=== PATIENT | female | born 1990 | race Caucasian/White ===

== ENCOUNTER → 2017-06-23 | Outpatient (CLI) | payer OTHER ==
[~2017-06-23] MED LIST: APRITAB PO; BENT20TA PO; BUTA1CAP PO
[2017-06-23 14:00] LABS: FREE T4 1.03 NG/DL (0.76-1.46)
== END ==
LOC: M LAB 12:12
PROVIDERS: ATTEND Internal Medicine Gastroenterology
DX: K58.0 Irritable bowel syndrome with diarrhea (principal)

== ENCOUNTER 2017-07-16 13:04 | Day surgery (SDC) | payer OTHER ==
[~2017-07-16] VITALS: Ht 167.6 cm; Wt 67.1 kg
[2017-07-16] MEDS ORDERED: NS 1,000 ML IV ONE (14:15)
[2017-07-16] MEDS ORDERED: LIDOCAINE 2% INJ 100 MG/5 ML SDV (FOR ANES.) As Ordered ONE (14:23)
[2017-07-16] MEDS ORDERED: PROPOFOL 200 MG/20 ML VIAL As Ordered ONE (14:23)
--- NOTE | 2017-07-16 15:17 | ROOR ---
Patient Name: My Melissa Procedure Date: 07/16/2017 3:08 PM Date of : 1990 Age: 27 Room: [facility] Gender: Female Note Status: Finalized Procedure: Upper GI endoscopy Indications: Epigastric abdominal pain, Lower abdominal pain Providers: Nura MILLER MD Referring MD: Deandre GRAHAM NP Requesting Provider: Medicines: Monitored Anesthesia Care Complications: No immediate complications. Procedure: Pre-Anesthesia Assessment: - The heart rate, respiratory rate, oxygen saturations, blood pressure, adequacy of pulmonary ventilation, and response to care were monitored throughout the procedure. The Endoscope was introduced through the mouth, and advanced to the second part of duodenum. The upper GI endoscopy was accomplished without difficulty. The patient tolerated the procedure well. Findings: The esophagus was normal. The stomach was normal. The examined duodenum was normal. Impression: - Normal esophagus. - Normal stomach. - Normal examined duodenum. - No specimens collected. Recommendation: - Observe patient's clinical course. - Continue present medications. Nura Miller MD Nura MILLER MD 07/16/2017 3:16:58 PM This report has been signed electronically. Number of Addenda: 0 Note Initiated On: 07/16/2017 3:08 PM Estimated Blood Loss: Estimated blood loss: none.
--- NOTE | 2017-07-16 15:30 | ROOR ---
Patient Name: yM Melissa Procedure Date: 07/16/2017 3:09 PM Date of : 1990 Age: 27 Room: [facility] Gender: Female Note Status: Finalized Procedure: Colonoscopy Indications: Generalized abdominal pain, Chronic diarrhea, Irritable bowel syndrome with diarrhea Providers: Nura MILLER MD Referring MD: Deandre GRAHAM NP Requesting Provider: Medicines: Monitored Anesthesia Care Complications: No immediate complications. Procedure: Pre-Anesthesia Assessment: - The heart rate, respiratory rate, oxygen saturations, blood pressure, adequacy of pulmonary ventilation, and response to care were monitored throughout the procedure. The Colonoscope was introduced through the anus and advanced to 8 cm into the ileum. The colonoscopy was performed without difficulty. The patient tolerated the procedure well. The quality of the bowel preparation was good. Findings: The perianal and digital rectal examinations were normal. Small Internal Hemorrhoids. The entire examined colon appeared normal on direct and retroflexion views. The terminal ileum appeared normal. Impression: - Minimal/Small Internal Hemorrhoids. - The entire examined colon is normal on direct and retroflexion views. - The examined portion of the ileum was normal. - No specimens collected. - (Irritable Bowel Syndrome/IBS suspected.) Recommendation: - Continue present medications. - Use fiber, for example Citrucel, Fibercon, Konsyl or Metamucil. Nura Miller MD Nura MILLER MD 07/16/2017 3:30:04 PM This report has been signed electronically. Number of Addenda: 0 Note Initiated On: 07/16/2017 3:09 PM Estimated Blood Loss: Estimated blood loss: none.
[2017-07-16 15:50] VITALS: BP 106/58
== END 2017-07-16 16:02 | disposition home or self-care (01) ==
LOC: M OPP 13:04
PROVIDERS: ATTEND Internal Medicine Gastroenterology
DX: R10.84 Generalized abdominal pain (principal); K58.0 Irritable bowel syndrome with diarrhea; K64.8 Other hemorrhoids; R10.13 Epigastric pain; R10.30 Lower abdominal pain, unspecified; R12 Heartburn; K21.9 Gastro-esophageal reflux disease without esophagitis; G43.909 Migraine, unspecified, not intractable, without status migrainosus; J45.909 Unspecified asthma, uncomplicated; Z88.0 Allergy status to penicillin; Z91.012 Allergy to eggs; Z91.030 Bee allergy status; Z79.899 Other long term (current) drug therapy

== ENCOUNTER → 2018-02-22 | Outpatient (CLI) | payer OTHER ==
[2018-02-22 20:38] LABS: HCG, SERUM QUANTITATIVE < 1.0 MIU/ML
== END ==
LOC: M WUC 16:54
DX: N94.6 Dysmenorrhea, unspecified (principal)
CPT/HCPCS: 84702

== ENCOUNTER → 2018-02-22 | Outpatient (REF) | payer OTHER | LOC: M LAB REF 18:11 | DX: N94.6 Dysmenorrhea, unspecified (principal); J02.9 Acute pharyngitis, unspecified ==

== ENCOUNTER → 2018-02-22 | Outpatient (REF) | payer OTHER | LOC: M LAB REF 18:13 | DX: N94.6 Dysmenorrhea, unspecified (principal); J02.9 Acute pharyngitis, unspecified ==

== ENCOUNTER → 2018-05-09 | Outpatient (REF) | payer OTHER ==
[2018-05-13 00:06] LABS: DEAMIDATED GLIADIN ABS, IgA 2 units (0-19); DEAMIDATED GLIADIN ABS, IgG 2 units (0-19); ENDOMYSIAL ANTIBODY IgA Negative (Negative); IMMUNOGLOBULIN A 155 mg/dL (87-352); t-TRANSGLUTAMINASE(tTG) IgA <2 U/mL (0-3); t-TRANSGLUTAMINASE(tTG) IgG <2 U/mL (0-5)
[2018-05-14 00:06] LABS: IgA ULTRASENSITIVE 145.1 mg/dL (72-321)
== END ==
LOC: M SFHCCLAY 10:28
DX: R10.31 Right lower quadrant pain (principal); R19.7 Diarrhea, unspecified

== ENCOUNTER → 2018-05-15 | Outpatient (REF) | payer OTHER | LOC: M SFHCCLAY 09:58 | DX: R10.31 Right lower quadrant pain (principal) ==

== ENCOUNTER → 2018-08-16 | Outpatient (REF) | payer OTHER ==
[2018-08-16 11:48] LABS: INFLUENZA A AMPLIFICATION NEGATIVE (NEGATIVE); INFLUENZA B AMPLIFICATION NEGATIVE (NEGATIVE)
== END ==
LOC: M LAB REF 10:46
PROVIDERS: ATTEND Physician Assistant Medical
DX: J11.1 Influenza due to unidentified influenza virus with other respiratory manifestations (principal)

== ENCOUNTER → 2018-11-07 | Outpatient (CLI) | payer OTHER ==
--- NOTE | 2018-11-08 02:32 | REP ---
Clinical: Shortness of breath and cough . Comparison: None . Technique: PA and lateral. Findings: The mediastinum and cardiac silhouette are normal. The lung esteban are clear and without acute consolidation, effusion, or pneumothorax. The skeletal structures are intact and normal. Impression: 1. No acute cardiopulmonary process.
== END ==
LOC: M CLY 10:29
PROVIDERS: ATTEND Family Medicine
DX: R05 Cough (principal); R06.02 Shortness of breath

== ENCOUNTER → 2018-11-17 | Outpatient (REF) | payer OTHER ==
[2018-11-29 13:01] LABS: ALBUMIN 3.8 GM/DL (3.2-5.2); ALT/SGPT 43 U/L (12-78); AMYLASE 60 U/L (25-115); BILIRUBIN,DIRECT < 0.1 MG/DL (0.0-0.2); BILIRUBIN,TOTAL 0.2 MG/DL (0.2-1.0); LIPASE 115 U/L (73-393); TOTAL PROTEIN 7.6 GM/DL (6.4-8.2)
== END ==
LOC: M LABDRAWC 11:14
PROVIDERS: ATTEND Nurse Practitioner Family
DX: R10.10 Upper abdominal pain, unspecified (principal); R14.0 Abdominal distension (gaseous); R19.4 Change in bowel habit; K62.5 Hemorrhage of anus and rectum

== ENCOUNTER → 2019-03-09 | Outpatient (CLI) | payer OTHER ==
--- NOTE | 2019-03-09 11:48 | REP ---
HIDA SCAN WITH GALLBLADDER EJECTION FRACTION: Following the intravenous administration of 6.5 mCi technetium 99m mebrofenin, multiple images of the right upper quadrant are performed every 5 minutes for a period of 1 hour. Gallbladder is visualized at 10 minutes postinjection. There is [id number] transit at about 35 minutes postinjection with no scintigraphic evidence of cholecystitis. At the 1-hour micheal, 8 ounces of Ensure Enlive was ingested and further imaging performed for 1 hour. Gallbladder activity is measured. Gallbladder ejection fraction is calculated to be 48%, which is normal. IMPRESSION: Normal gallbladder ejection fraction. Electronically Signed by Judd Mueller MD 03/10/2019 01:01 P
== END ==
LOC: M RAD 08:09
PROVIDERS: ATTEND Internal Medicine Gastroenterology
DX: R19.4 Change in bowel habit (principal); K58.9 Irritable bowel syndrome, unspecified; R10.11 Right upper quadrant pain; R10.13 Epigastric pain
CPT/HCPCS: 78227; A9537; J2805

== ENCOUNTER → 2019-04-01 | Outpatient (REF) | payer OTHER | LOC: M LAB REF 13:31 | PROVIDERS: ATTEND Internal Medicine Gastroenterology | DX: R19.7 Diarrhea, unspecified (principal) ==

== ENCOUNTER → 2019-06-08 | Outpatient (REF) | payer OTHER | LOC: M LAB REF 09:57 | PROVIDERS: ATTEND Internal Medicine Gastroenterology | DX: R19.7 Diarrhea, unspecified (principal) ==

== ENCOUNTER → 2019-06-25 | Outpatient (CLI) | payer OTHER ==
[2019-06-25 09:42] LABS: HEMATOCRIT 39.4 % (36.0-47.0); HEMOGLOBIN 13.8 g/dl (12.0-15.5); MEAN CORPUSCULAR HEMOGLOBIN 30.3 pg (27.0-33.0); MEAN CORPUSCULAR VOLUME 86.4 fl (80.0-96.0); PLATELET COUNT, AUTOMATED 438 10^3/uL (150-450); RED BLOOD COUNT 4.56 10^6/uL (4.00-5.40); WHITE BLOOD COUNT 8.7 10^3/uL (4.0-10.0)
[2019-06-25 10:03] LABS: ERYTHROCYTE SEDIMENTATION RATE 32 mm/hr (0-20)
[2019-06-25 10:19] LABS: ALBUMIN 3.9 GM/DL (3.2-5.2); ALT/SGPT 36 U/L (12-78); BILIRUBIN,TOTAL 0.3 MG/DL (0.2-1.0); BLOOD UREA NITROGEN 15 MG/DL (7-18); C REACTIVE PROTEIN QUANTITATIV < 0.30 MG/DL (0.00-0.30); CALCIUM LEVEL 9.3 MG/DL (8.5-10.1); CARBON DIOXIDE LEVEL 24 MEQ/L (21-32); CHLORIDE LEVEL 108 MEQ/L (98-107); CREATININE FOR GFR 0.87 MG/DL (0.55-1.30); FERRITIN 101 NG/ML (8-252); GLOMERULAR FILTRATION RATE > 60.0 (>60); GLUCOSE, FASTING 87 MG/DL (70-100); IRON (FE) 84 UG/DL (50-170); LIPASE 105 U/L (73-393); PERCENT SATURATION 27.2 % (13.2-45.0); POTASSIUM SERUM 4.4 MEQ/L (3.5-5.1); SODIUM LEVEL 138 MEQ/L (136-145); TOTAL IRON BINDING CAPACITY 309 UG/DL (250-450); TOTAL PROTEIN 7.9 GM/DL (6.4-8.2)
== END ==
LOC: M LAB 09:18
PROVIDERS: ATTEND Internal Medicine Gastroenterology
DX: K58.9 Irritable bowel syndrome, unspecified (principal); R19.7 Diarrhea, unspecified; R10.31 Right lower quadrant pain; A04.5 Campylobacter enteritis

== ENCOUNTER → 2019-07-03 | Outpatient (REF) | payer OTHER ==
[2019-07-03 13:28] LABS: APPEARANCE, URINE MANUAL CLOUDY (CLEAR); COLOR, URINE MANUAL RED (YELLOW)
[2019-07-03 13:29] LABS: BILIRUBIN, URINE MANUAL OBSCURED (NEGATIVE); BLOOD URINE MANUAL POSITIVE (NEGATIVE); GLUCOSE, URINE (UA) MANUAL NEGATIVE (NEGATIVE); KETONE, URINE MANUAL OBSCURED mg/dL (NEGATIVE); LEUKOCYTE ESTERASE, URINE MAN POSITIVE (NEGATIVE); NITRITE, URINE MANUAL OBSCURED (NEGATIVE); UROBILINOGEN, URINE MANUAL OBSCURED mg/dl (NORMAL)
[2019-07-03 13:36] LABS: AMORPHOUS SEDIMENT, URINE MOD AMOUNT (NEGATIVE); BACTERIA, URINE SMALL AMOUNT; HYALINE CAST, URINE NONE SEEN /lpf (0-1); RBC, URINE TNTC /hpf (0-3); SQUAMOUS EPITHELIAL CELL URINE SMALL AMOUNT /hpf (SMALL AMT); WBC, URINE 15-20 /hpf (0-3)
== END ==
LOC: M LAB REF 13:00
PROVIDERS: ATTEND Physician Assistant Medical
DX: N39.0 Urinary tract infection, site not specified (principal)

== ENCOUNTER → 2019-07-24 | Outpatient (CLI) | payer OTHER ==
[~2019-07-24] MED LIST changes: +GASTROGRAFIN SOLUTION 30ML (Q9963) As Ordered ONE; +ISOVUE-370 76% 100ML VIAL (Q9967) As Ordered ONE
--- NOTE | 2019-07-24 12:57 | REP ---
Clinical: Abdominal pain. Technique: Axial contrast enhanced images from the lung bases to the pubic symphysis using oral (per protocol) and 100 ml Isovue 370 intravenous contrast material with coronal and sagittal re-formations. Findings: Lung bases are clear. Visualized heart and pericardium normal. Fatty infiltration to the liver suggested without focal hepatic lesion. Spleen, pancreas, gallbladder, bilateral adrenal glands and kidneys are normal. The enteric system is without obstruction or acute inflammatory process. Normal terminal ileum and appendix are identified in the right lower quadrant. Pelvis demonstrates normal bladder and age-appropriate uterus/adnexa. No ascites. No free air. No adenopathy. Abdominal aorta without aneurysm or dissection. Musculoskeletal structures are intact. Impression: No acute abdominopelvic pathology appreciated. Mild hepatic steatosis. Electronically Signed by Fabian Porras MD 07/24/2019 12:49 P
== END ==
LOC: M RAD 10:53
PROVIDERS: ATTEND Internal Medicine Gastroenterology
DX: R10.9 Unspecified abdominal pain (principal)

== ENCOUNTER → 2019-10-08 | Outpatient (CLI) | payer OTHER ==
[~2019-10-08] MED LIST changes: -GASTROGRAFIN SOLUTION 30ML (Q9963) As Ordered ONE; -ISOVUE-370 76% 100ML VIAL (Q9967) As Ordered ONE
[2019-10-08 13:49] LABS: HEMATOCRIT 41.7 % (36.0-47.0); MEAN CORPUSCULAR HEMOGLOBIN 29.2 pg (27.0-33.0); MEAN CORPUSCULAR HGB CONC 33.6 g/dl (32.0-36.5); MEAN CORPUSCULAR VOLUME 86.9 fl (80.0-96.0); PLATELET COUNT, AUTOMATED 472 10^3/uL (150-450); WHITE BLOOD COUNT 10.1 10^3/uL (4.0-10.0)
== END ==
LOC: M LAB 13:21
PROVIDERS: ATTEND Internal Medicine Gastroenterology
DX: R10.31 Right lower quadrant pain (principal)

== ENCOUNTER → 2019-10-25 | Outpatient (CLI) | payer OTHER ==
[~2019-10-25] MED LIST changes: +E-Z-PAQUE 96% w/w SUSP 176GM BTL As Ordered ONE
--- NOTE | 2019-10-25 19:34 | REP ---
Examination Requested: SBFT Reason For Exam: Abdominal pain Small Bowel Follow Through The procedure was performed by ARACELY Alexandra, under the direct supervision of Dr. Kaye. The images were reviewed with Dr. Kaye. The painter railroad car film shows no organomegaly or pathological masses. The intestinal gas pattern appears normal. The barium was administered and the barium column was followed through the small bowel to the level of the terminal ileum. Small bowel transit time was approximately 20 minutes. During fluoroscopy gentle palpation shows all loops are freely mobile and pliable. There are no fixed or angulated loops. The small bowel mucosal pattern is normal in course and caliber. There is no transition to suggest a partial small-bowel obstruction. Spot filming of the terminal ileum shows it to be unremarkable. The appendix is visualized. Impression: 1. Unremarkable small bowel follow-through 0.5 minutes of fluoroscopy time was utilized for this procedure. Some fluoroscopic images are performed with last image hold technology. These images require no additional radiation. Reviewed by ARACELY Posadas 10/25/2019 03:45 P Electronically Signed by Patricio Kaye MD 10/25/2019 07:25 P
== END ==
LOC: M RAD 08:26
PROVIDERS: ATTEND Internal Medicine Gastroenterology
DX: R10.9 Unspecified abdominal pain (principal)

== ENCOUNTER → 2019-11-22 | Outpatient (REF) | payer OTHER ==
[~2019-11-22] MED LIST changes: -E-Z-PAQUE 96% w/w SUSP 176GM BTL As Ordered ONE
[2019-11-22 14:04] LABS: CHOLESTEROL RISK RATIO 7.27 (<5); FREE T4 0.93 NG/DL (0.76-1.46); THYROID STIMULATING HORMONE 1.31 uIU/ML (0.358-3.740)
[2019-11-22 14:06] LABS: FOLLICLE STIMULATING HORMONE 7.6 mIU/mL; THYROID PEROXIDASE ANTIBODY 45.3 U/ML (<60.0)
[2019-11-23 14:06] LABS: TESTOSTERONE FREE (DIRECT) 2.7 pg/mL (0.0-4.2)
== END ==
LOC: M LABDRAW1 10:56
PROVIDERS: ATTEND Internal Medicine Endocrinology, Diabetes & Metabolism
DX: E04.0 Nontoxic diffuse goiter (principal); E28.2 Polycystic ovarian syndrome

== ENCOUNTER → 2020-02-10 | Outpatient (CLI) | payer OTHER ==
[2020-02-10 12:29] LABS: ALBUMIN 3.6 GM/DL (3.2-5.2); ALT/SGPT 19 U/L (12-78); BILIRUBIN,TOTAL 0.2 MG/DL (0.2-1.0); BLOOD UREA NITROGEN 8 MG/DL (7-18); CALCIUM LEVEL 9.2 MG/DL (8.5-10.1); CARBON DIOXIDE LEVEL 24 MEQ/L (21-32); CHLORIDE LEVEL 106 MEQ/L (98-107); CHOLESTEROL LEVEL 233 MG/DL (<200); CHOLESTEROL RISK RATIO 5.295 (<5); CREATININE FOR GFR 0.62 MG/DL (0.55-1.30); GLOMERULAR FILTRATION RATE > 60.0 (>60); GLUCOSE, FASTING 69 MG/DL (70-100); HDL CHOLESTEROL 44 MG/DL (>40); LDL CHOLESTEROL 121 MG/DL (<100); NON-HDL-C 189 MG/DL; POTASSIUM SERUM 4.1 MEQ/L (3.5-5.1); SODIUM LEVEL 137 MEQ/L (136-145); TOTAL PROTEIN 7.5 GM/DL (6.4-8.2); TRIGLYCERIDES LEVEL 341 MG/DL (<150)
== END ==
LOC: M LAB 11:04
PROVIDERS: ATTEND Nurse Practitioner Family
DX: E78.2 Mixed hyperlipidemia (principal)

== ENCOUNTER → 2020-02-10 | Outpatient (CLI) | payer OTHER ==
[2020-02-10 11:56] LABS: BASO % 0.4 % (0.0-1.0); EOS # 0.1 10^3/uL (0.0-0.5); EOS % 1.1 % (0.0-3.0); HEMATOCRIT 38.8 % (36.0-47.0); HEMOGLOBIN 12.9 g/dl (12.0-15.5); LYMPH # 3.1 10^3/uL (1.5-5.0); LYMPH % 28.8 % (24.0-44.0); MEAN CORPUSCULAR HEMOGLOBIN 28.9 pg (27.0-33.0); MEAN CORPUSCULAR HGB CONC 33.2 g/dl (32.0-36.5); MEAN CORPUSCULAR VOLUME 86.8 fl (80.0-96.0); MONO # 0.4 10^3/uL (0.0-0.8); NEUTROPHILS # 6.9 10^3/uL (1.5-8.5); NEUTROPHILS % 65.4 % (36.0-66.0); PLATELET COUNT, AUTOMATED 430 10^3/uL (150-450); RED BLOOD COUNT 4.47 10^6/uL (4.00-5.40); WHITE BLOOD COUNT 10.6 10^3/uL (4.0-10.0)
[2020-02-10 12:27] LABS: ERYTHROCYTE SEDIMENTATION RATE 44 mm/hr (0-20)
[2020-02-10 12:33] LABS: HEMOGLOBIN A1c 5.1 %
[2020-02-10 12:35] LABS: ALBUMIN 3.4 GM/DL (3.2-5.2); ALT/SGPT 17 U/L (12-78); BILIRUBIN,TOTAL 0.2 MG/DL (0.2-1.0); BLOOD UREA NITROGEN 8 MG/DL (7-18); CARBON DIOXIDE LEVEL 25 MEQ/L (21-32); CHLORIDE LEVEL 106 MEQ/L (98-107); GLOMERULAR FILTRATION RATE > 60.0 (>60); GLUCOSE, FASTING 74 MG/DL (70-100); POTASSIUM SERUM 4.3 MEQ/L (3.5-5.1); RHEUMATOID FACTOR QUANT < 10.0 IU/ML (<15.0); SODIUM LEVEL 137 MEQ/L (136-145); TOTAL PROTEIN 7.3 GM/DL (6.4-8.2)
[2020-02-12 10:25] LABS: TOTAL 25(OH) VITAMIN D 14.3 NG/ML (30.0-100.0); VITAMIN B12 LEVEL 363 PG/ML
[2020-02-12 10:27] LABS: FOLATE 14.4 NG/ML
[2020-02-13 15:49] LABS: ALPHA-2-GLOBULINS % 13.8 % (7.1-11.8); BETA-1-GLOBULINS % 5.8 % (4.7-7.2); BETA-2-GLOBULINS % 5.5 % (3.2-6.5)
[2020-02-13 15:50] LABS: ALBUMIN 4.02 GM/DL (3.29-5.55); ALPHA-1-GLOBULINS 0.37 GM/DL (0.17-0.41); ALPHA-2-GLOBULINS 1.01 GM/DL (0.42-0.99); BETA-1-GLOBULINS 0.42 GM/DL (0.28-0.60); GAMMA GLOBULIN % 14.9 % (11.1-18.8); GAMMA GLOBULINS 1.09 GM/DL (0.65-1.58)
[2020-02-17 16:08] LABS: ANCA-ATYPICAL <1:20 titer (Neg:<1:20); ANTI DS-DNA AB Negative (Negative); ANTINUCLEAR ANTIBODIES DIRECT Negative (Negative); CYTOPLASMIC NEUTROP AB ANCA-C <1:20 titer (Neg:<1:20); PERINUCLEAR AB ANCA-P <1:20 titer (Neg:<1:20); SJOGREN'S ANTI SS-A <0.2 AI (0.0-0.9); SJOGREN'S ANTI SS-B <0.2 AI (0.0-0.9); VITAMIN B1 LEVEL WHOLE BLOOD 116.2 nmol/L (66.5-200.0); VITAMIN B6,PYRIDOXAL PHOSPHATE 2.7 ug/L (2.0-32.8); VITAMIN E(ALPHA TOCOPHEROL) 16.1 mg/L (5.9-19.4); VITAMIN E(GAMMA TOCOPHEROL) 1.9 mg/L (0.7-4.9)
== END ==
LOC: M LAB 11:06
PROVIDERS: ATTEND Psychiatry & Neurology Neurology
DX: R51 Headache (principal); G62.9 Polyneuropathy, unspecified; R42 Dizziness and giddiness

== ENCOUNTER → 2020-05-26 | Outpatient (CLI) | payer OTHER ==
[2020-05-26 10:53] LABS: HEMATOCRIT 37.8 % (36.0-47.0); HEMOGLOBIN 12.9 g/dl (12.0-15.5); MEAN CORPUSCULAR HEMOGLOBIN 29.2 pg (27.0-33.0); MEAN CORPUSCULAR HGB CONC 34.1 g/dl (32.0-36.5); MEAN CORPUSCULAR VOLUME 85.5 fl (80.0-96.0); RED BLOOD COUNT 4.42 10^6/uL (4.00-5.40); WHITE BLOOD COUNT 7.9 10^3/uL (4.0-10.0)
[2020-05-26 10:54] LABS: PLATELET COUNT, AUTOMATED 439 10^3/uL (150-450)
[2020-05-26 15:17] LABS: ALBUMIN 3.8 GM/DL (3.2-5.2); ALT/SGPT 17 U/L (12-78); BILIRUBIN,TOTAL 0.2 MG/DL (0.2-1.0); BLOOD UREA NITROGEN 14 MG/DL (7-18); CALCIUM LEVEL 9.3 MG/DL (8.5-10.1); CARBON DIOXIDE LEVEL 24 MEQ/L (21-32); CHLORIDE LEVEL 110 MEQ/L (98-107); CREATININE FOR GFR 0.77 MG/DL (0.55-1.30); FERRITIN 128 NG/ML (8-252); GLOMERULAR FILTRATION RATE > 60.0 (>60); GLUCOSE, FASTING 91 MG/DL (70-100); IRON (FE) 63 UG/DL (50-170); PERCENT SATURATION 21.1 % (13.2-45.0); POTASSIUM SERUM 3.9 MEQ/L (3.5-5.1); SODIUM LEVEL 140 MEQ/L (136-145); TOTAL IRON BINDING CAPACITY 299 UG/DL (250-450); TOTAL PROTEIN 7.7 GM/DL (6.4-8.2)
[2020-05-27 09:47] LABS: VITAMIN B12 LEVEL 343 PG/ML (247-911)
[2020-05-29 16:08] LABS: ANCA-ATYPICAL <1:20 titer (Neg:<1:20); CYTOPLASMIC NEUTROP AB ANCA-C <1:20 titer (Neg:<1:20); PERINUCLEAR AB ANCA-P <1:20 titer (Neg:<1:20); TISSUE TRANSGLUTAMINASE IgA <2 U/mL (0-3)
== END ==
LOC: M LAB 10:23
PROVIDERS: ATTEND Internal Medicine Gastroenterology
DX: R19.7 Diarrhea, unspecified (principal); R10.31 Right lower quadrant pain; K44.9 Diaphragmatic hernia without obstruction or gangrene; K76.0 Fatty (change of) liver, not elsewhere classified

== ENCOUNTER → 2020-08-21 | Outpatient (CLI) | payer OTHER ==
[2020-08-21 09:04] LABS: HCG, SERUM QUALITATIVE POSITIVE (NEGATIVE)
== END ==
LOC: M LAB 07:52
PROVIDERS: ATTEND Internal Medicine Gastroenterology
DX: K76.0 Fatty (change of) liver, not elsewhere classified (principal); Z32.01 Encounter for pregnancy test, result positive; K44.9 Diaphragmatic hernia without obstruction or gangrene; K58.9 Irritable bowel syndrome, unspecified

== ENCOUNTER → 2020-09-10 | Outpatient (REF) | payer OTHER | LOC: M PLALAB 10:46 | PROVIDERS: ATTEND Obstetrics & Gynecology | DX: Z34.01 Encounter for supervision of normal first pregnancy, first trimester (principal) ==

== ENCOUNTER → 2020-09-12 | Outpatient (CLI) | payer OTHER ==
[2020-09-12 09:46] LABS: HEMATOCRIT 40.5 % (36.0-47.0); HEMOGLOBIN 13.7 g/dl (12.0-15.5); MEAN CORPUSCULAR HEMOGLOBIN 29.8 pg (27.0-33.0); MEAN CORPUSCULAR HGB CONC 33.8 g/dl (32.0-36.5); PLATELET COUNT, AUTOMATED 453 10^3/uL (150-450); WHITE BLOOD COUNT 8.9 10^3/uL (4.0-10.0)
[2020-09-12 11:03] LABS: HEPATITIS C VIRUS ABY INDEX < 0.0 INDEX (<0.8); HIV 1&2 SCREEN CENTAUR NEGATIVE (NEGATIVE)
[2020-09-12 11:33] LABS: CHLAMYDIA DNA AMPLIFICATION NEGATIVE (NEGATIVE); GC DNA AMPLIFICATION NEGATIVE (NEGATIVE)
== END ==
LOC: M LAB 08:20
PROVIDERS: ATTEND Obstetrics & Gynecology
DX: Z34.01 Encounter for supervision of normal first pregnancy, first trimester (principal); Z3A.00 Weeks of gestation of pregnancy not specified

== ENCOUNTER → 2020-09-25 | Outpatient (REF) | payer OTHER | LOC: M SFHCWAGY 13:20 | PROVIDERS: ATTEND Advanced Practice Midwife | DX: R30.0 Dysuria (principal) ==

== ENCOUNTER → 2020-10-07 | Outpatient (REF) | payer OTHER | LOC: M PLALAB 07:52 | PROVIDERS: ATTEND Obstetrics & Gynecology | DX: Z3A.11 11 weeks gestation of pregnancy (principal) ==

== ENCOUNTER → 2020-10-08 | Outpatient (CLI) | payer OTHER | LOC: M PLALAB 08:04 | PROVIDERS: ATTEND Obstetrics & Gynecology | DX: Z34.81 Encounter for supervision of other normal pregnancy, first trimester (principal) ==

== ENCOUNTER → 2020-11-01 | Outpatient (CLI) | payer OTHER | LOC: M WHC 12:37 | PROVIDERS: ATTEND Obstetrics & Gynecology | DX: Z34.92 Encounter for supervision of normal pregnancy, unspecified, second trimester (principal); Z3A.15 15 weeks gestation of pregnancy; Z53.9 Procedure and treatment not carried out, unspecified reason ==

== ENCOUNTER → 2020-12-02 | Outpatient (CLI) | payer OTHER ==
--- NOTE | 2020-12-03 09:49 | REP ---
INDICATION: ANATOMY COMPARISON: None. TECHNIQUE: Transabdominal obstetrical ultrasound with color Doppler evaluation. FINDINGS: Examination demonstrates a single live intrauterine in breech presentation. motion is identified by technologist. Placenta is noted posterior and grade 1 without evidence for placenta previa or abruption. Amniotic fluid volume is normal. Cervix measures 3.2 cm in length and appears closed. The cord demonstrates eccentric insertion on the placenta.. Gestational age by LMP 19 weeks 0 days with LEI 04/28/2021. Gestational age by current measurements 19 weeks 4 days with LEI 04/24/2021. FHR equals 161 beats per minute. BPD: 4.3 cm at 19 weeks 0 days HC: 16.6 cm at 19 weeks 2 days AC: 14.4 cm at 19 weeks 5 days FL: 3.2 cm at 20 weeks 0 days HL: 3.0 cm at 19 weeks 5 days HC/AC: 1.16 Estimated weight 310 grams (86thpercentile). Anatomical assessment demonstrates normal structures including cranium, cerebellum/posterior fossa, facial features, diaphragm, stomach, abdominal wall, kidneys/bladder, spine, extremities and three-vessel cord. Limited evaluation of the choroid plexus and cerebral ventricles and heart/ventricular outflow tracts due to positioning.. IMPRESSION: Single live intrauterine in breech presentation demonstrating appropriate estimated weight/growth. Anatomical limitations as noted above may warrant re-evaluation and follow-up. <Electronically signed by Fabian Porras > 12/03/20 [id number]
== END ==
LOC: M WHC 13:08
PROVIDERS: ATTEND Obstetrics & Gynecology
DX: Z34.92 Encounter for supervision of normal pregnancy, unspecified, second trimester (principal); Z3A.19 19 weeks gestation of pregnancy

== ENCOUNTER → 2020-12-30 | Outpatient (REF) | payer OTHER | LOC: M PLALAB 14:08 | PROVIDERS: ATTEND Obstetrics & Gynecology | DX: Z36.89 Encounter for other specified antenatal screening (principal); Z3A.23 23 weeks gestation of pregnancy ==

== ENCOUNTER → 2021-01-20 | Outpatient (CLI) | payer OTHER ==
--- NOTE | 2021-01-20 16:31 | REP ---
INDICATION: F/U ANATOMY COMPARISON: 12/30/2020 TECHNIQUE: Transabdominal obstetrical ultrasound with color Doppler evaluation. FINDINGS: Examination demonstrates a single live intrauterine in breech presentation. motion is identified by technologist. Placenta is noted posterior and grade 1 without evidence for placenta previa or abruption. Amniotic fluid volume is normal. Cervix measures 3.3 cm in length and appears closed.. Gestational age by LMP 26 weeks 0 days with LEI 04/28/2021. Gestational age by current measurements 27 weeks 1 day with LEI 04/20/2021. FHR equals 142 beats per minute. Estimated weight 1010 grams (79thpercentile). Anatomical assessment demonstrates normal structures including cranium, choroid plexus, cavum, cerebellum/posterior fossa, facial features, lungs, four-chamber heart/ventricular outflow tracts, diaphragm, stomach, cord insertion/three-vessel cord, kidneys/bladder, and extremities. IMPRESSION: Single live intrauterine in breech presentation demonstrating appropriate estimated weight and growth. In conjunction with prior examination anatomical assessment is complete and normal. <Electronically signed by Fabian Porras > 01/20/21 [id number]
== END ==
LOC: M WHC 15:40
PROVIDERS: ATTEND Obstetrics & Gynecology
DX: Z36.9 Encounter for antenatal screening, unspecified (principal); Z3A.27 27 weeks gestation of pregnancy

== ENCOUNTER → 2021-02-14 | Outpatient (CLI) | payer OTHER ==
[2021-02-14 17:26] LABS: HEMATOCRIT 34.9 % (36.0-47.0); HEMOGLOBIN 11.9 g/dl (12.0-15.5); MEAN CORPUSCULAR HEMOGLOBIN 30.3 pg (27.0-33.0); MEAN CORPUSCULAR HGB CONC 34.1 g/dl (32.0-36.5); MEAN CORPUSCULAR VOLUME 88.8 fl (80.0-96.0); PLATELET COUNT, AUTOMATED 320 10^3/uL (150-450); RED BLOOD COUNT 3.93 10^6/uL (4.00-5.40); WHITE BLOOD COUNT 11.6 10^3/uL (4.0-10.0)
== END ==
LOC: M LAB 15:18
PROVIDERS: ATTEND Obstetrics & Gynecology
DX: Z34.82 Encounter for supervision of other normal pregnancy, second trimester (principal)

== ENCOUNTER → 2021-02-16 | Outpatient (REF) | payer OTHER | LOC: M PLALAB 17:23 | PROVIDERS: ATTEND Obstetrics & Gynecology | DX: O99.810 Abnormal glucose complicating pregnancy (principal); Z3A.00 Weeks of gestation of pregnancy not specified ==

== ENCOUNTER → 2021-03-20 | Outpatient (CLI) | payer OTHER ==
--- NOTE | 2021-03-20 12:28 | REP ---
INDICATION: GROWTH/DIABETES. COMPARISON: Comparison sonography January 20, 2021.. TECHNIQUE: Transabdominal obstetric sonography. FINDINGS: Scanning through the gravid uterus demonstrates a viable single intrauterine gestation in cephalic lie. motion is observed and heart rate is recorded at 160 beats per minute. A posterior placenta is seen, grade 2, without evidence of placenta previa. Closed cervical length is not seen due to head position.. No extrauterine abnormality is observed. Amniotic fluid is subjectively normal. JAKY is normal at 12.6 cm.. Biometry chart: BPD 9.0 cm, 36 weeks 4 days Head circumference 32.1 cm, 36 weeks 2 days Abdominal circumference 31.2 cm, 35 weeks 1 day Femur length 7.0 cm, 36 weeks 0 days Humeral length 6.0 cm, 34 weeks 6 days HC AC ratio normal 1.03 Cephalic index normal 0.80 Estimated weight 2735 g, 6 lb 0 oz, 79th percentile for 34 weeks 3 days SD ratio in the umbilical cord artery by Doppler normal 2.83 IMPRESSION: Viable single intrauterine gestation at 35 weeks 5 days by today's composite sonographic criteria. LEI by today's sonography April 19, 2021. No complication identified. Expected gestational age estimate from known LEI of 28 April 2021 is 34 weeks 3 days. <Electronically signed by Hector Kaye > 03/20/21 [id number]
== END ==
LOC: M WHC 09:52
PROVIDERS: ATTEND Obstetrics & Gynecology
DX: O24.415 Gestational diabetes mellitus in pregnancy, controlled by oral hypoglycemic drugs (principal); Z3A.35 35 weeks gestation of pregnancy

== ENCOUNTER → 2021-03-24 | Outpatient (REF) | payer OTHER | LOC: M PLALAB 14:55 | PROVIDERS: ATTEND Obstetrics & Gynecology | DX: Z36.85 Encounter for antenatal screening for Streptococcus B (principal); Z3A.35 35 weeks gestation of pregnancy ==

== ENCOUNTER 2021-04-22 16:11 | Inpatient (IN) | payer OTHER ==
[~2021-04-22] VITALS: Ht 167.6 cm; Wt 89.3 kg
[2021-04-22 16:29] VITALS: BP 137/82
[2021-04-22] MEDS ORDERED: VITAD400CA PO (16:50)
[2021-04-22] MEDS ORDERED: EPIP0.3I2 IM (16:50)
[2021-04-22] MEDS ORDERED: METF500T13 PO (16:50)
[2021-04-22] MEDS ORDERED: ALBU83IN INH (16:50)
[2021-04-22] MEDS ORDERED: OMEP40CA4 PO (16:50)
[2021-04-22] MEDS ORDERED: TUMS500C PO (16:50)
[2021-04-22] MEDS ORDERED: PRENTAB9 PO (16:50)
[2021-04-22] MEDS ORDERED: ACET-907 PO (16:50)
[2021-04-22] MEDS ORDERED: HOME MED LIST COMPLETE! XX SCH (16:55)
[2021-04-22] MEDS: miSOPROStol 50MCG 1/2 TABLET PO SCH ×2 (17:27→21:43)
[2021-04-22 17:31] VITALS: BP 119/76
[2021-04-22 17:42] LABS: HEMATOCRIT 33.9 % (36.0-47.0); HEMOGLOBIN 11.7 g/dl (12.0-15.5); MEAN CORPUSCULAR HEMOGLOBIN 30.2 pg (27.0-33.0); MEAN CORPUSCULAR HGB CONC 34.5 g/dl (32.0-36.5); MEAN CORPUSCULAR VOLUME 87.4 fl (80.0-96.0); PLATELET COUNT, AUTOMATED 224 10^3/uL (150-450); RED BLOOD COUNT 3.88 10^6/uL (4.00-5.40)
[2021-04-22 18:01] VITALS: BP 118/77
[2021-04-22 18:54] VITALS: BP 123/82
[2021-04-22 19:17] VITALS: BP 131/75
[2021-04-22 21:45] VITALS: BP 128/78
[2021-04-23] VITALS (24 sets, daily range): BP systolic 114–138; BP diastolic 66–86
[2021-04-23] MEDS: miSOPROStol 50MCG 1/2 TABLET PO SCH ×3 (01:46→10:30)
[2021-04-23] MEDS ORDERED: OXYTOCIN DRIP 30 UNITS in IV 1 EA IV SCH (15:15)
[2021-04-23] MEDS: LR 1,000 ML IV SCH (15:44)
[2021-04-23] MEDS ORDERED: METHYLERGONOVINE MALEATE 0.2 MG/ML VIAL (J2210) IM PRN (16:30)
[2021-04-23] MEDS ORDERED: OXYTOCIN DRIP 30 UNITS in IV 1 EA IV PRN ×4 (16:30)
[2021-04-23] MEDS ORDERED: OXYTOCIN INJ 10 UNITS/ML VIAL (J2590) IM PRN (16:30)
[2021-04-23] MEDS ORDERED: LIDOCAINE 1% MDV 20ML VIAL INFIL PRN (16:30)
[2021-04-23] MEDS: VANCOMYCIN HCL 1,000 MG, VIAL MATE ADAPTER 1 EACH in NS 250 ML IV SCH (16:54)
[2021-04-24] VITALS (40 sets, daily range): BP systolic 108–172; BP diastolic 58–94
[2021-04-24] MEDS: LR 1,000 ML IV SCH ×2 (00:56→07:32)
[2021-04-24] MEDS ORDERED: FENTANYL 2MCG/ML ROPIVACAINE 0.2% IN 0.9% NACL 100ML IVBAG As Ordered ONE (03:13)
[2021-04-24] MEDS: VANCOMYCIN HCL 1,000 MG, VIAL MATE ADAPTER 1 EACH in NS 250 ML IV SCH (04:29)
[2021-04-24] MEDS ORDERED: NALOXONE INJ 0.4MG/1ML VIAL (J2310 PER 1MG) IV PRN ×3 (04:40→14:50)
[2021-04-24] MEDS ORDERED: EPIDURAL/PCA KEYS XX PRN (04:40)
[2021-04-24] MEDS ORDERED: REFRIGERATOR IV KEYS XX PRN (04:40)
[2021-04-24] MEDS ORDERED: LACTATED RINGER'S 1000 ML IV PRN (04:40)
[2021-04-24] MEDS ORDERED: ePHEDrine SULFATE 25 MG/5 ML(5MG/ML) SYRINGE IV PRN (04:40)
[2021-04-24] MEDS ORDERED: EPIDURAL COMMENT XX SCH (04:40)
[2021-04-24] MEDS ORDERED: FENTANYL/ROPIVACAINE/NACL BAG 100 ML EPIDURAL SCH (04:40)
[2021-04-24] MEDS ORDERED: diphenhydrAMINE 50MG/ML VIAL (J1200) IV PRN ×2 (04:40→14:50)
[2021-04-24] MEDS ORDERED: ONDANSETRON 4MG/2ML VIAL IV PRN ×3 (04:40→15:15)
[2021-04-24] MEDS ORDERED: ceFAZolin SOD 2 GM in IV 1 EA IV ONE (12:55)
[2021-04-24] MEDS ORDERED: TRANEXAMIC ACID INJection 1,000 MG in NS 100 ML IV PRN (12:55)
[2021-04-24] MEDS ORDERED: AZITHROMYCIN INJ 500 MG, VIAL MATE ADAPTER 1 EACH in NS 250 ML IV ONE (12:55)
[2021-04-24] MEDS ORDERED: METHYLERGONOVINE MALEATE 0.2 MG/ML VIAL (J2210) IM PRN (12:55)
[2021-04-24] MEDS ORDERED: CARBOPROST TROMETHAMINE 250 MCG/ML AMP IM PRN (12:55)
[2021-04-24] MEDS ORDERED: BICITRA 30ML SOLN UDC As Ordered ONE (13:12)
[2021-04-24] MEDS ORDERED: BICITRA 30ML SOLN UDC PO ONE (13:15)
[2021-04-24] MEDS ORDERED: LIDOCAINE PRES-FREE 2% 10ML AMP As Ordered ONE (13:28)
[2021-04-24] MEDS ORDERED: EPINEPHrine 1MG/10ML SYRINGE 1.5IN As Ordered ONE (13:28)
[2021-04-24] MEDS ORDERED: dexameTHASONE 4 MG/ML 1ML VIAL (J1100 PER 1MG) As Ordered ONE (13:45)
[2021-04-24] MEDS ORDERED: ONDANSETRON 4MG/2ML VIAL As Ordered ONE (13:45)
[2021-04-24] MEDS ORDERED: KETOROLAC 60MG 2ML VIAL As Ordered ONE (13:54)
[2021-04-24] MEDS ORDERED: MORPHINE PRES-FREE INJ 10 MG/10 ML VIAL (J2274) As Ordered ONE (13:56)
[2021-04-24] MEDS ORDERED: METOCLOPRAMIDE INJ 10MG/2ML VIAL (J2765 PER 1) As Ordered ONE (13:59)
[2021-04-24] MEDS ORDERED: propofoL 200 MG/20 ML VIAL As Ordered ONE ×2 (14:06→14:26)
[2021-04-24] MEDS ORDERED: OXYTOCIN 30 UNITS IN 0.9% NaCl 500ML IV BAG (J2590) As Ordered ONE (14:15)
[2021-04-24] MEDS: KETOROLAC 30 MG/ML 1ML VIAL IV SCH ×2 (14:44→20:34)
[2021-04-24] MEDS ORDERED: NALBUPHINE HCL 10 MG/ML AMP (J2300) IV PRN ×2 (14:50→15:15)
[2021-04-24] MEDS ORDERED: METOCLOPRAMIDE INJ 10MG/2ML VIAL (J2765 PER 1) IV PRN (14:50)
[2021-04-24] MEDS ORDERED: oxyCODONE 5MG TAB PO PRN (15:15)
[2021-04-24] MEDS ORDERED: LR 1,000 ML IV SCH (15:15)
[2021-04-24] MEDS ORDERED: fentaNYL 100 MCG/2 ML INJECTION (J3010) IV PRN (15:15)
[2021-04-24] MEDS ORDERED: MEASLES,MUMPS,RUBELLA VACCINE INJ (MMR-II) (90707) SC SCH (15:30)
[2021-04-24] MEDS ORDERED: PERCOCET 5MG/325MG TAB PO PRN (15:30)
[2021-04-24] MEDS ORDERED: OXYTOCIN DRIP 30 UNITS in IV 1 EA IV SCH (15:30)
[2021-04-24] MEDS ORDERED: RHOGAM 300 MCG (1500 IU) INJ (J2790) IM SCH (15:30)
[2021-04-24] MEDS ORDERED: ACETAMINOPHEN 500 MG TAB PO PRN (15:30)
[2021-04-24] MEDS ORDERED: SIMETHICONE 80MG CHEW TAB PO PRN (15:30)
[2021-04-24] MEDS ORDERED: ALBUTEROL SULFATE 2.5 MG/0.5 ML INH NEB SOLN INH PRN (15:30)
[2021-04-24] MEDS ORDERED: PHENYLephrine 500MCG 5ML (100MCG/ML) SYRINGE As Ordered ONE (16:08)
[2021-04-24 16:15] LABS: HEMATOCRIT 23.9 % (36.0-47.0); MEAN CORPUSCULAR HEMOGLOBIN 30.5 pg (27.0-33.0); MEAN CORPUSCULAR HGB CONC 34.3 g/dl (32.0-36.5); MEAN CORPUSCULAR VOLUME 88.8 fl (80.0-96.0); PLATELET COUNT, AUTOMATED 237 10^3/uL (150-450); RED BLOOD COUNT 2.69 10^6/uL (4.00-5.40); WHITE BLOOD COUNT 21.1 10^3/uL (4.0-10.0)
[2021-04-24 16:22] LABS: HEMOGLOBIN 8.2 g/dl (12.0-15.5)
[2021-04-24 16:27] LABS: INR 1.07; PROTHROMBIN TIME 14.4 SECONDS (12.7-14.5)
[2021-04-24 16:28] LABS: PARTIAL THROMBOPLASTIN TIME 28.5 SECONDS (25.9-37.0)
[2021-04-24 17:57] LABS: HEMATOCRIT 32.1 % (36.0-47.0); MEAN CORPUSCULAR HEMOGLOBIN 30.3 pg (27.0-33.0); MEAN CORPUSCULAR HGB CONC 34.3 g/dl (32.0-36.5); MEAN CORPUSCULAR VOLUME 88.4 fl (80.0-96.0); PLATELET COUNT, AUTOMATED 263 10^3/uL (150-450); RED BLOOD COUNT 3.63 10^6/uL (4.00-5.40); WHITE BLOOD COUNT 22.3 10^3/uL (4.0-10.0)
[2021-04-24 18:06] LABS: INR 1.06; PARTIAL THROMBOPLASTIN TIME 29.2 SECONDS (25.9-37.0); PROTHROMBIN TIME 14.2 SECONDS (12.7-14.5)
[2021-04-24] MEDS: DOCUSATE SODIUM 100MG CAPSULE PO SCH (20:33)
[2021-04-24] MEDS: OMEPRAZOLE 20 MG CAP PO SCH (20:33)
[2021-04-24] MEDS ORDERED: metFORMIN (GLUCOPHAGE) 500MG TAB PO SCH (21:00)
[2021-04-24] MEDS: PERCOCET 5MG/325MG TAB PO PRN (22:49)
[2021-04-25] VITALS (17 sets, daily range): BP systolic 111–139; BP diastolic 60–89
[2021-04-25] MEDS ORDERED: CYCLOBENZAPRINE 10MG TABLET PO ONE (02:00)
[2021-04-25] MEDS: KETOROLAC 30 MG/ML 1ML VIAL IV SCH (02:43)
[2021-04-25] MEDS ORDERED: LR 1,000 ML IV ONE (03:55)
[2021-04-25 08:14] LABS: HEMATOCRIT 21.2 % (36.0-47.0); MEAN CORPUSCULAR HGB CONC 34.4 g/dl (32.0-36.5); MEAN CORPUSCULAR VOLUME 87.2 fl (80.0-96.0); PLATELET COUNT, AUTOMATED 205 10^3/uL (150-450); RED BLOOD COUNT 2.43 10^6/uL (4.00-5.40); WHITE BLOOD COUNT 14.2 10^3/uL (4.0-10.0)
[2021-04-25 08:19] LABS: HEMOGLOBIN 7.3 g/dl (12.0-15.5)
[2021-04-25] MEDS: PRENATAL VITAMINS CHEWABLE TABLET PO SCH (09:40)
[2021-04-25] MEDS: OMEPRAZOLE 20 MG CAP PO SCH (09:40)
[2021-04-25] MEDS: DOCUSATE SODIUM 100MG CAPSULE PO SCH ×2 (09:41→20:41)
[2021-04-25] MEDS: IBUPROFEN 800 MG TAB PO SCH ×2 (10:17→18:19)
[2021-04-25] MEDS ORDERED: CYCLOBENZAPRINE 10MG TABLET PO PRN (10:20)
[2021-04-25] MEDS: PERCOCET 5MG/325MG TAB PO PRN (16:50)
[2021-04-25 21:21] LABS: HEMATOCRIT 32.8 % (36.0-47.0); HEMOGLOBIN 11.5 g/dl (12.0-15.5); MEAN CORPUSCULAR HEMOGLOBIN 29.9 pg (27.0-33.0); MEAN CORPUSCULAR HGB CONC 35.1 g/dl (32.0-36.5); MEAN CORPUSCULAR VOLUME 85.2 fl (80.0-96.0); PLATELET COUNT, AUTOMATED 195 10^3/uL (150-450); RED BLOOD COUNT 3.85 10^6/uL (4.00-5.40); WHITE BLOOD COUNT 13.8 10^3/uL (4.0-10.0)
[2021-04-26 02:00] VITALS: BP 140/86
[2021-04-26] MEDS: IBUPROFEN 800 MG TAB PO SCH ×2 (03:19→11:43)
[2021-04-26 06:16] VITALS: BP 145/90
[2021-04-26] MEDS: PRENATAL VITAMINS CHEWABLE TABLET PO SCH (09:54)
[2021-04-26] MEDS: OMEPRAZOLE 20 MG CAP PO SCH (09:54)
[2021-04-26] MEDS: DOCUSATE SODIUM 100MG CAPSULE PO SCH (09:54)
[2021-04-26] MEDS: PERCOCET 5MG/325MG TAB PO PRN (09:55)
[2021-04-26 10:00] VITALS: BP 156/89
[2021-04-26] MEDS ORDERED: PERCOCET PO (10:58)
[2021-04-26] MEDS ORDERED: IBUP80TA PO (10:58)
== END 2021-04-26 13:25 | disposition home or self-care (01) | DRG 787 ==
LOC: M LDI 16:11 → M OBS 04-24 18:38
PROVIDERS: ADMIT Obstetrics & Gynecology; ATTEND Obstetrics & Gynecology
PROC: 3E033VJ Introduction of Other Hormone into Peripheral Vein, Percutaneous Approach (ICD-10-PCS; 2021-04-22)
PROC: 30233N1 Transfusion of Nonautologous Red Blood Cells into Peripheral Vein, Percutaneous Approach (ICD-10-PCS; 2021-04-24)
PROC: 10D00Z1 Extraction of Products of Conception, Low, Open Approach (ICD-10-PCS; principal; 2021-04-24 14:59)
DX: O24.425 Gestational diabetes mellitus in childbirth, controlled by oral hypoglycemic drugs (principal); O72.1 Other immediate postpartum hemorrhage; D62 Acute posthemorrhagic anemia; Z3A.39 39 weeks gestation of pregnancy; O64.0XX0 Obstructed labor due to incomplete rotation of fetal head, not applicable or unspecified; Z37.0 Single live birth; O99.02 Anemia complicating childbirth

== ENCOUNTER → 2021-04-29 | Outpatient (CLI) | payer OTHER ==
[~2021-04-29] MED LIST changes: +ACET-907 PO; +ALBU83IN INH; +EPIP0.3I2 IM; +IBUP80TA PO; +METF500T13 PO; +OMEP40CA4 PO; +PERCOCET PO; +PRENTAB9 PO; +TUMS500C PO; +VITAD400CA PO
[2021-04-29 14:01] LABS: HEMOGLOBIN 11.5 g/dl (12.0-15.5); MEAN CORPUSCULAR HEMOGLOBIN 29.6 pg (27.0-33.0); MEAN CORPUSCULAR HGB CONC 33.8 g/dl (32.0-36.5); MEAN CORPUSCULAR VOLUME 87.6 fl (80.0-96.0); PLATELET COUNT, AUTOMATED 306 10^3/uL (150-450); RED BLOOD COUNT 3.88 10^6/uL (4.00-5.40); WHITE BLOOD COUNT 10.1 10^3/uL (4.0-10.0)
== END ==
LOC: M PLALAB 10:33
PROVIDERS: ATTEND Advanced Practice Midwife
DX: O34.211 Maternal care for low transverse scar from previous cesarean delivery (principal)

== ENCOUNTER → 2021-04-30 | Outpatient (CLI) | payer OTHER | LOC: M LABSMTC 10:11 | PROVIDERS: ATTEND Pediatrics | DX: Z11.52 Encounter for screening for COVID-19 (principal) ==

== ENCOUNTER → 2021-09-20 | Outpatient (CLI) | payer OTHER ==
[2021-09-20 12:33] LABS: HEMATOCRIT 40.3 % (36.0-47.0); HEMOGLOBIN 14.1 g/dl (12.0-15.5); MEAN CORPUSCULAR HEMOGLOBIN 30.1 pg (27.0-33.0); MEAN CORPUSCULAR VOLUME 86.1 fl (80.0-96.0); PLATELET COUNT, AUTOMATED 389 10^3/uL (150-450); RED BLOOD COUNT 4.68 10^6/uL (4.00-5.40); WHITE BLOOD COUNT 8.6 10^3/uL (4.0-10.0)
[2021-09-20 12:57] LABS: ALBUMIN 3.7 GM/DL (3.2-5.2); ALT/SGPT 66 U/L (12-78); BILIRUBIN,DIRECT < 0.1 MG/DL (0.0-0.2); BILIRUBIN,TOTAL 0.3 MG/DL (0.2-1.0); FERRITIN 165 NG/ML (8-252); IRON (FE) 105 UG/DL (50-170); PERCENT SATURATION 38.6 % (13.2-45.0); TOTAL IRON BINDING CAPACITY 272 UG/DL (250-450); TOTAL PROTEIN 7.5 GM/DL (6.4-8.2)
== END ==
LOC: M LAB 11:09
PROVIDERS: ATTEND Internal Medicine Gastroenterology
DX: K58.9 Irritable bowel syndrome, unspecified (principal); R10.9 Unspecified abdominal pain; R19.4 Change in bowel habit; K62.5 Hemorrhage of anus and rectum; K76.0 Fatty (change of) liver, not elsewhere classified

== ENCOUNTER → 2021-09-25 | Outpatient (REF) | payer OTHER | LOC: M LAB REF 10:17 | PROVIDERS: ATTEND Internal Medicine Gastroenterology | DX: K58.9 Irritable bowel syndrome, unspecified (principal); R10.9 Unspecified abdominal pain; R19.4 Change in bowel habit ==

== ENCOUNTER → 2021-09-26 | Outpatient (CLI) | payer OTHER | LOC: M RAD 08:57 | PROVIDERS: ATTEND Nurse Practitioner Family | DX: R16.0 Hepatomegaly, not elsewhere classified (principal); K76.0 Fatty (change of) liver, not elsewhere classified; R10.11 Right upper quadrant pain ==

== ENCOUNTER → 2021-10-16 | Outpatient (CLI) | payer OTHER ==
[2021-10-16 12:10] LABS: APPEARANCE, URINE CLEAR (CLEAR); BACTERIA, URINE AUTO NEGATIVE (NEGATIVE); BILIRUBIN, URINE AUTO NEGATIVE (NEGATIVE); BLOOD, URINE BLOOD 3+ (NEGATIVE); COLOR, URINE YELLOW (YELLOW); GLUCOSE, URINE (UA) AUTO NEGATIVE (NEGATIVE); KETONE, URINE AUTO NEGATIVE (NEGATIVE); LEUKOCYTE ESTERASE, URINE AUTO 2+ (NEGATIVE); MUCUS, URINE SMALL (NEGATIVE); NITRITE, URINE AUTO NEGATIVE (NEGATIVE); PROTEIN, URINE AUTO NEGATIVE (NEGATIVE); RBC, URINE AUTO 0 /HPF (0-3); SPECIFIC GRAVITY URINE AUTO 1.001 (1.002-1.035); SQUAMOUS EPITHELIAL CELL UR AU 0 /HPF (0-6); UROBILINOGEN, URINE AUTO 0.2 mg/dL (0.0-2.0); WBC, URINE AUTO 2 /HPF (0-3)
[2021-10-16 12:51] LABS: ALBUMIN 4.5 GM/DL (3.2-5.2); ALT/SGPT 78 U/L (12-78); AMYLASE 48 U/L (25-115); BILIRUBIN,TOTAL 0.3 MG/DL (0.2-1.0); BLOOD UREA NITROGEN 13 MG/DL (7-18); CALCIUM LEVEL 9.8 MG/DL (8.5-10.1); CARBON DIOXIDE LEVEL 24 MEQ/L (21-32); CHLORIDE LEVEL 105 MEQ/L (98-107); CREATININE FOR GFR 0.72 MG/DL (0.55-1.30); FREE T4 0.88 NG/DL (0.76-1.46); GLOMERULAR FILTRATION RATE > 60.0 (>60); GLUCOSE, FASTING 92 MG/DL (70-100); LIPASE 99 U/L (73-393); POTASSIUM SERUM 4.2 MEQ/L (3.5-5.1); SODIUM LEVEL 138 MEQ/L (136-145); TOTAL PROTEIN 8.1 GM/DL (6.4-8.2)
[2021-10-17 09:15] LABS: HCG, SERUM QUALITATIVE NEGATIVE (NEGATIVE)
[2021-10-17 13:09] LABS: TISSUE TRANSGLUTAMINASE IgA <2 U/mL (0-3); TISSUE TRANSGLUTAMINASE IgG <2 U/mL (0-5)
== END ==
LOC: M LAB 10:31
PROVIDERS: ATTEND Nurse Practitioner Family
DX: R10.11 Right upper quadrant pain (principal)

== ENCOUNTER → 2022-04-02 | Outpatient (CLI) | payer OTHER ==
[~2022-04-02] MED LIST changes: +ALBU2.5V10 INH; -ALBU83IN INH
== END ==
LOC: M RAD 08:17
PROVIDERS: ATTEND Internal Medicine Gastroenterology
DX: R10.9 Unspecified abdominal pain (principal)

== ENCOUNTER → 2022-04-28 | Outpatient (REF) | payer OTHER | LOC: M LAB REF 17:11 | PROVIDERS: ATTEND Nurse Practitioner Family | DX: R30.0 Dysuria (principal) ==

== ENCOUNTER → 2022-05-12 | Outpatient (CLI) | payer OTHER ==
[2022-05-12 08:28] LABS: HEMOGLOBIN A1c 5.4 %
== END ==
LOC: M LAB 07:31
PROVIDERS: ATTEND Nurse Practitioner Family
DX: E28.2 Polycystic ovarian syndrome (principal)

== ENCOUNTER → 2022-05-17 | Outpatient (CLI) | payer OTHER ==
[2022-05-17 09:42] LABS: BASO # 0.1 10^3/uL (0.0-0.2); BASO % 0.5 % (0.0-1.0); EOS # 0.2 10^3/uL (0.0-0.5); EOS % 1.7 % (0.0-3.0); HEMATOCRIT 41.2 % (36.0-47.0); HEMOGLOBIN 14.1 g/dl (12.0-15.5); LYMPH # 3.2 10^3/uL (1.5-5.0); LYMPH % 34.5 % (24.0-44.0); MEAN CORPUSCULAR HGB CONC 34.2 g/dl (32.0-36.5); MEAN CORPUSCULAR VOLUME 87.7 fl (80.0-96.0); MONO # 0.5 10^3/uL (0.0-0.8); MONO % 5.4 % (2.0-8.0); NEUTROPHILS # 5.3 10^3/uL (1.5-8.5); NEUTROPHILS % 57.6 % (36.0-66.0); PLATELET COUNT, AUTOMATED 438 10^3/uL (150-450); WHITE BLOOD COUNT 9.2 10^3/uL (4.0-10.0)
[2022-05-17 10:15] LABS: ALT/SGPT 79 U/L (12-78); BILIRUBIN,TOTAL 0.5 MG/DL (0.2-1.0); BLOOD UREA NITROGEN 12 MG/DL (7-18); CALCIUM LEVEL 9.5 MG/DL (8.5-10.1); CARBON DIOXIDE LEVEL 25 MEQ/L (21-32); CHLORIDE LEVEL 106 MEQ/L (98-107); GLOMERULAR FILTRATION RATE > 60.0 (>60); GLUCOSE, FASTING 90 MG/DL (70-100); POTASSIUM SERUM 4.1 MEQ/L (3.5-5.1); SODIUM LEVEL 136 MEQ/L (136-145)
== END ==
LOC: M LAB 08:39
PROVIDERS: ATTEND Nurse Practitioner Family
DX: R53.83 Other fatigue (principal)

== ENCOUNTER → 2022-06-03 | Outpatient (REF) | payer OTHER ==
[2022-06-03 13:46] LABS: APPEARANCE, URINE MANUAL TURBID (CLEAR); BILIRUBIN, URINE MANUAL NEGATIVE (NEGATIVE); COLOR, URINE MANUAL YELLOW (YELLOW); GLUCOSE, URINE (UA) MANUAL NEGATIVE (NEGATIVE); KETONE, URINE MANUAL NEGATIVE (NEGATIVE); PROTEIN, URINE MANUAL TRACE mg/dL (NEGATIVE); UROBILINOGEN, URINE MANUAL NORMAL (NORMAL)
[2022-06-03 13:47] LABS: BLOOD URINE MANUAL TRACE (NEGATIVE); LEUKOCYTE ESTERASE, URINE MAN POSITIVE (NEGATIVE); NITRITE, URINE MANUAL NEGATIVE (NEGATIVE)
[2022-06-03 14:24] LABS: RBC, URINE 0-1 /hpf (0-3)
[2022-06-03 14:25] LABS: AMORPHOUS SEDIMENT, URINE LARGE AMOUNT (NEGATIVE); BACTERIA, URINE SMALL AMOUNT; HYALINE CAST, URINE NONE SEEN /lpf (0-1); SQUAMOUS EPITHELIAL CELL URINE SMALL AMOUNT /hpf (SMALL AMT)
== END ==
LOC: M SMT 13:03
PROVIDERS: ATTEND Nurse Practitioner Women's Health
DX: R39.89 Other symptoms and signs involving the genitourinary system (principal)

== ENCOUNTER → 2022-06-05 | Outpatient (CLI) | payer OTHER | LOC: M WHC 13:25 | PROVIDERS: ATTEND Nurse Practitioner Women's Health | DX: R39.89 Other symptoms and signs involving the genitourinary system (principal); Z87.440 Personal history of urinary (tract) infections ==

== ENCOUNTER → 2022-06-26 | Outpatient (CLI) | payer OTHER ==
[~2022-06-26] MED LIST changes: +ISOVUE-370 76% 100ML VIAL As Ordered ONE
== END ==
LOC: M RAD 15:22
PROVIDERS: ATTEND Nurse Practitioner Women's Health
DX: C20 Malignant neoplasm of rectum (principal)

== ENCOUNTER → 2022-06-30 | Outpatient (CLI) | payer OTHER ==
[~2022-06-30] MED LIST changes: +GLUCAGON INJ 1MG VIAL As Ordered ONE; +NEULUMEX 0.1% SUSPENSION 450ML BOTTLE (FORMERLY VOLUMEN) As Ordered ONE
== END ==
LOC: M RAD 12:50
PROVIDERS: ATTEND Internal Medicine Gastroenterology
DX: K76.0 Fatty (change of) liver, not elsewhere classified (principal)

== ENCOUNTER → 2022-07-27 | Outpatient (CLI) | payer OTHER ==
[~2022-07-27] MED LIST changes: -GLUCAGON INJ 1MG VIAL As Ordered ONE; -ISOVUE-370 76% 100ML VIAL As Ordered ONE; -NEULUMEX 0.1% SUSPENSION 450ML BOTTLE (FORMERLY VOLUMEN) As Ordered ONE
[2022-07-27 13:28] LABS: C REACTIVE PROTEIN QUANTITATIV 0.4 MG/DL (<1.0)
[2022-07-31 01:10] LABS: ANCA-ATYPICAL <1:20 titer (Neg:<1:20); CALPROTECTIN STOOL 39 ug/g (0-120); CYTOPLASMIC NEUTROP AB ANCA-C <1:20 titer (Neg:<1:20); FATS NEUTRAL Normal (.); FATS TOTAL Normal (.); PERINUCLEAR AB ANCA-P <1:20 titer (Neg:<1:20)
== END ==
LOC: M LAB 10:53
PROVIDERS: ATTEND Internal Medicine Gastroenterology
DX: K62.5 Hemorrhage of anus and rectum (principal)

== ENCOUNTER → 2022-10-17 | Outpatient (REF) | payer OTHER ==
[2022-10-17 19:20] LABS: APPEARANCE, URINE CLOUDY (CLEAR); BILIRUBIN, URINE AUTO NEGATIVE (NEGATIVE); BLOOD, URINE BLOOD 1+ (NEGATIVE); COLOR, URINE YELLOW (YELLOW); GLUCOSE, URINE (UA) AUTO NEGATIVE (NEGATIVE); KETONE, URINE AUTO NEGATIVE (NEGATIVE); LEUKOCYTE ESTERASE, URINE AUTO 3+ (NEGATIVE); NITRITE, URINE AUTO NEGATIVE (NEGATIVE); PROTEIN, URINE AUTO NEGATIVE (NEGATIVE); UROBILINOGEN, URINE AUTO 0.2 mg/dL (0.0-2.0)
[2022-10-17 19:27] LABS: BACTERIA, URINE AUTO 1+ (NEGATIVE); MUCUS, URINE SMALL (NEGATIVE); RBC, URINE AUTO 12 /HPF (0-3); SQUAMOUS EPITHELIAL CELL UR AU 21 /HPF (0-6); TRANSITIONAL EPITHELIAL AUTO 1 /HPF; WBC, URINE AUTO TNTC /HPF (0-3)
== END ==
LOC: M LAB REF 19:07
PROVIDERS: ATTEND Physician Assistant Medical
DX: N39.0 Urinary tract infection, site not specified (principal)

== ENCOUNTER → 2022-12-02 | Outpatient (CLI) | payer OTHER | LOC: M SOG 07:49 | PROVIDERS: ATTEND Orthopaedic Surgery | DX: M54.50 Low back pain, unspecified (principal) ==

== ENCOUNTER → 2022-12-14 | Outpatient (CLI) | payer OTHER | LOC: M RAD 15:41 | PROVIDERS: ATTEND Orthopaedic Surgery | DX: M54.59 Other low back pain (principal) ==

== ENCOUNTER → 2023-01-01 | Outpatient (REF) | payer OTHER ==
[2023-01-01 14:57] LABS: URINE PREG TEST NEGATIVE (NEGATIVE)
== END ==
LOC: M SFHCWAGY 13:16
PROVIDERS: ATTEND Nurse Practitioner Family
DX: R39.15 Urgency of urination (principal)

== ENCOUNTER → 2023-01-01 | Outpatient (REF) | payer OTHER | LOC: M SFHCWAGY 13:15 | PROVIDERS: ATTEND Nurse Practitioner Family | DX: Z12.4 Encounter for screening for malignant neoplasm of cervix (principal); Z01.419 Encounter for gynecological examination (general) (routine) without abnormal findings; Z77.9 Other contact with and (suspected) exposures hazardous to health ==

== ENCOUNTER → 2023-01-05 | Outpatient (CLI) | payer OTHER | LOC: M WHC 12:29 | PROVIDERS: ATTEND Nurse Practitioner Family | DX: M79.662 Pain in left lower leg (principal) ==

== ENCOUNTER → 2023-03-11 | Outpatient (REF) | payer OTHER | LOC: M SFHCWAGY 16:58 | PROVIDERS: ATTEND Nurse Practitioner Family | DX: N75.0 Cyst of Bartholin's gland (principal) ==

== ENCOUNTER → 2023-05-07 | Outpatient (REF) | payer OTHER | LOC: M LAB REF 12:43 | PROVIDERS: ATTEND Registered Nurse | DX: R30.0 Dysuria (principal) ==

== ENCOUNTER → 2023-11-15 | Outpatient (REF) | payer OTHER | LOC: M SFHCWAGY 15:31 | PROVIDERS: ATTEND Nurse Practitioner Family | DX: N75.0 Cyst of Bartholin's gland (principal) ==

== ENCOUNTER → 2023-11-26 | Outpatient (CLI) | payer OTHER | LOC: M RAD 15:12 | PROVIDERS: ATTEND Otolaryngology | DX: D44.0 Neoplasm of uncertain behavior of thyroid gland (principal) ==

== ENCOUNTER → 2023-12-23 | Outpatient (CLI) | payer OTHER ==
[~2023-12-23] MED LIST changes: +LIDOCAINE 1% MDV 20ML VIAL As Ordered ONE
[2023-12-23 14:10] VITALS: BP 134/94; O2SAT 99
== END ==
LOC: M IRPRO 13:00
PROVIDERS: ATTEND Otolaryngology
DX: D44.0 Neoplasm of uncertain behavior of thyroid gland (principal)

== ENCOUNTER → 2024-01-03 | Outpatient (REF) | payer OTHER ==
[~2024-01-03] MED LIST changes: -LIDOCAINE 1% MDV 20ML VIAL As Ordered ONE
== END ==
LOC: M SFHCWAGY 16:47
PROVIDERS: ATTEND Nurse Practitioner Family
DX: N75.0 Cyst of Bartholin's gland (principal)

== ENCOUNTER 2024-01-31 10:25 | Day surgery (SDC) | payer OTHER ==
[~2024-01-31] VITALS: Ht 167.6 cm; Wt 75.8 kg
[~2024-01-31 10:25] MED LIST changes: +COLE1TAB PO
[2024-01-31] MEDS ORDERED: LR 1,000 ML IV SCH ×2 (10:30→11:45)
[2024-01-31 10:59] LABS: HEMATOCRIT 42.8 % (36.0-47.0); HEMOGLOBIN 14.7 g/dl (12.0-15.5); MEAN CORPUSCULAR HEMOGLOBIN 29.9 pg (27.0-33.0); MEAN CORPUSCULAR HGB CONC 34.3 g/dl (32.0-36.5); MEAN CORPUSCULAR VOLUME 87.2 fl (80.0-96.0); PLATELET COUNT, AUTOMATED 415 10^3/uL (150-450); RED BLOOD COUNT 4.91 10^6/uL (4.00-5.40); WHITE BLOOD COUNT 9.2 10^3/uL (4.0-10.0)
[2024-01-31] MEDS ORDERED: KETOROLAC 60MG 2ML VIAL As Ordered ONE (11:21)
[2024-01-31] MEDS ORDERED: propofoL 200 MG/20 ML VIAL As Ordered ONE (11:21)
[2024-01-31] MEDS ORDERED: ONDANSETRON 4MG 2ML VIAL As Ordered ONE (11:21)
[2024-01-31] MEDS ORDERED: LIDOCAINE 2% 100MG/5ML SDV (FOR ANES.) As Ordered ONE (11:21)
[2024-01-31] MEDS ORDERED: fentaNYL 100 MCG/2 ML INJECTION As Ordered ONE (11:22)
[2024-01-31] MEDS ORDERED: MIDAZOLAM INJ 2MG/2ML VIAL As Ordered ONE (11:22)
[2024-01-31] MEDS ORDERED: ONDANSETRON 4MG 2ML VIAL IV PRN (11:45)
[2024-01-31] MEDS: ceFAZolin SOD 2 GM in IV 1 EA IV ONE (11:45)
[2024-01-31] MEDS ORDERED: fentaNYL 100 MCG/2 ML INJECTION IV PRN ×2 (11:45)
[2024-01-31] MEDS ORDERED: oxyCODONE 5MG TAB PO PRN (11:45)
[2024-01-31] MEDS ORDERED: HYDROMORPHONE HCL 0.5 MG/ 0.5 ML SYRINGE IV PRN (11:45)
[2024-01-31] MEDS: SILVER NITRATE APPLICATOR (1 = QTY 10) As Ordered ONE (12:07)
[2024-01-31] MEDS: ESTROGENS VAGINAL CREAM 30GM As Ordered ONE (12:08)
[2024-01-31 13:20] VITALS: BP 126/76; TEMP 97; O2SAT 100
[2024-01-31] MEDS ORDERED: DIBU28OI2 TOP (14:39)
== END 2024-01-31 13:46 | disposition home or self-care (01) ==
LOC: M SDC 10:25
PROVIDERS: ATTEND Obstetrics & Gynecology
DX: N75.0 Cyst of Bartholin's gland (principal); Z88.0 Allergy status to penicillin; Z88.2 Allergy status to sulfonamides; J30.1 Allergic rhinitis due to pollen; Z88.7 Allergy status to serum and vaccine; Z91.012 Allergy to eggs; E73.9 Lactose intolerance, unspecified; Z91.018 Allergy to other foods; Z91.030 Bee allergy status; J30.81 Allergic rhinitis due to animal (cat) (dog) hair and dander
CPT/HCPCS: 36415; 56440; 81025; 85027; 86850; 86900; 86901; C1727; J0665; J0690; J1100; J1885; J2250; J2405; J3010

== ENCOUNTER → 2024-03-03 | Outpatient (CLI) | payer OTHER ==
[~2024-03-03] MED LIST changes: +DIBU28OI2 TOP; +PROHANCE 279.3MG/ML 15ML VIAL As Ordered ONE
== END ==
LOC: M RAD 12:27
PROVIDERS: ATTEND Otolaryngology
DX: R42 Dizziness and giddiness (principal)
CPT/HCPCS: 70553; A9576

== ENCOUNTER → 2024-06-09 | Outpatient (CLI) | payer OTHER ==
[~2024-06-09] MED LIST changes: -PROHANCE 279.3MG/ML 15ML VIAL As Ordered ONE
[2024-06-09 18:51] LABS: HCG, SERUM QUANTITATIVE < 2.6 MIU/ML (<4.2)
[2024-06-09 18:57] LABS: ALBUMIN 3.7 G/DL (3.2-5.2); ALKALINE PHOSPHATASE 87 U/L (46-116); ALT/SGPT 16 U/L (7.0-40); AST/SGOT < 8 U/L (<34); BILIRUBIN,TOTAL 0.2 MG/DL (0.3-1.2); BLOOD UREA NITROGEN 13 MG/DL (9-23); CALCIUM LEVEL 9.5 MG/DL (8.5-10.1); CARBON DIOXIDE LEVEL 24 MMOL/L (20-31); CHLORIDE LEVEL 103 MMOL/L (98-107); CREATININE FOR GFR 1.02 MG/DL (0.55-1.30); GLOMERULAR FILTRATION RATE > 60.0 (>60); GLUCOSE, FASTING 77 MG/DL (60-100); SODIUM LEVEL 137 MMOL/L (136-145); TOTAL PROTEIN 7.4 G/DL (5.7-8.2)
== END ==
LOC: M PLALAB 15:44
PROVIDERS: ATTEND Nurse Practitioner Family
DX: Z30.09 Encounter for other general counseling and advice on contraception (principal)

== ENCOUNTER → 2024-09-08 | Outpatient (CLI) | payer OTHER | LOC: M RAD 13:50 | PROVIDERS: ATTEND Physician Assistant | DX: D44.0 Neoplasm of uncertain behavior of thyroid gland (principal); E04.1 Nontoxic single thyroid nodule ==

== ENCOUNTER → 2024-10-09 | Outpatient (CLI) | payer OTHER ==
[2024-10-09 16:48] LABS: THYROID STIMULATING HORMONE 1.167 uIU/ML (0.55-4.78)
[2024-10-09 16:49] LABS: FREE T4 1.02 NG/DL (0.89-1.76)
== END ==
LOC: M LAB 15:48
PROVIDERS: ATTEND Otolaryngology
DX: E06.9 Thyroiditis, unspecified (principal)

== ENCOUNTER → 2024-10-25 | Outpatient (REF) | payer OTHER ==
[2024-10-25 14:13] LABS: RHEUMATOID FACTOR QUANT < 3.5 IU/ML (<14)
[2024-10-25 14:17] LABS: URIC ACID 6.2 MG/DL (3.1-7.8)
[2024-10-25 14:31] LABS: MONO REFLEX EBV COMP POSITIVE (NEGATIVE)
[2024-10-26 15:22] LABS: CYCLIC CITRULLINATED PEPTIDE < 16 UNITS (<20)
[2024-10-26 18:42] LABS: ANA SCREEN, IFA POSITIVE (NEGATIVE)
[2024-10-26 18:52] LABS: ANA PATTERN Nuclear, Homogeneous (NEGATIVE); ANA TITER 1:40 titer (<1:40)
== END ==
LOC: M LAB REF 12:37
PROVIDERS: ATTEND Nurse Practitioner Family
DX: M25.50 Pain in unspecified joint (principal); R53.83 Other fatigue

== ENCOUNTER 2024-11-27 13:37 | Emergency (ER) | payer OTHER ==
[~2024-11-27] VITALS: Ht 167.6 cm; Wt 69.4 kg
[2024-11-27 15:18] LABS: KETONE, URINE AUTO RFX TRACE mg/dL (NEGATIVE); LEUKOCYTE ESTERASE UR AUTO RFX NEGATIVE (NEGATIVE); MUCUS, URINE RFX SMALL (NEGATIVE); NITRITE, URINE AUTO RFX NEGATIVE (NEGATIVE); RBC, URINE AUTO RFX 0 /HPF (0-3); SQUAM EPITHELIAL CELL UR AURFX 4 /HPF (0-6); WBC, URINE AUTO RFX 0 /HPF (0-3)
[2024-11-27 15:22] LABS: BASO % 0.2 % (0.0-1.0); EOS % 0.2 % (0.0-3.0); HEMATOCRIT 40.8 % (36.0-47.0); HEMOGLOBIN 13.9 g/dl (12.0-15.5); LYMPH # 0.7 10^3/uL (1.5-5.0); LYMPH % 3.7 % (24.0-44.0); MEAN CORPUSCULAR HEMOGLOBIN 29.1 pg (27.0-33.0); MEAN CORPUSCULAR HGB CONC 34.1 g/dl (32.0-36.5); MEAN CORPUSCULAR VOLUME 85.4 fl (80.0-96.0); MONO # 0.5 10^3/uL (0.0-0.8); MONO % 2.7 % (2.0-8.0); NEUTROPHILS # 17.3 10^3/uL (1.5-8.5); NEUTROPHILS % 92.9 % (36.0-66.0); PLATELET COUNT, AUTOMATED 470 10^3/uL (150-450); RED BLOOD COUNT 4.78 10^6/uL (4.00-5.40); WHITE BLOOD COUNT 18.7 10^3/uL (4.0-10.0)
[2024-11-27 15:51] LABS: HCG, SERUM QUALITATIVE POSITIVE (NEGATIVE); LIPASE 29 U/L (12-53)
[2024-11-27 15:53] LABS: ALBUMIN 3.7 G/DL (3.2-5.2); ALKALINE PHOSPHATASE 77 U/L (35-104); ALT/SGPT 14 U/L (7.0-40); AST/SGOT < 8 U/L (<34); BILIRUBIN,DIRECT < 0.1 MG/DL (<0.4); BILIRUBIN,TOTAL 0.4 MG/DL (0.3-1.2); BLOOD UREA NITROGEN 12 MG/DL (9-23); CALCIUM LEVEL 9.4 MG/DL (8.5-10.1); CARBON DIOXIDE LEVEL 21 MMOL/L (20-31); CHLORIDE LEVEL 106 MMOL/L (98-107); CREATININE FOR GFR 0.55 MG/DL (0.55-1.30); GLOMERULAR FILTRATION RATE > 60.0 (>60); GLUCOSE, FASTING 114 MG/DL (60-100); SODIUM LEVEL 137 MMOL/L (136-145); TOTAL PROTEIN 7.8 G/DL (5.7-8.2)
[2024-11-27] MEDS: NS (Normal Saline) 0.9% 1,000 ML IV ONE (18:37)
[2024-11-27] MEDS: ONDANSETRON 4MG 2ML VIAL IV ONE (18:40)
[2024-11-27] MEDS ORDERED: ONDA-282 PO (18:41)
[2024-11-27 19:00] VITALS: BP 111/58; O2SAT 99
[2024-11-27 19:57] VITALS: TEMP 100.6
== END 2024-11-27 20:04 | disposition home or self-care (01) ==
LOC: M ED 13:37
DX: O21.9 Vomiting of pregnancy, unspecified (principal); O98.511 Other viral diseases complicating pregnancy, first trimester; O26.611 Liver and biliary tract disorders in pregnancy, first trimester; Z3A.01 Less than 8 weeks gestation of pregnancy; Z88.0 Allergy status to penicillin; Z88.1 Allergy status to other antibiotic agents; Z88.7 Allergy status to serum and vaccine; Z91.09 Other allergy status, other than to drugs and biological substances; Z91.012 Allergy to eggs; Z79.1 Long term (current) use of non-steroidal anti-inflammatories (NSAID); Z79.51 Long term (current) use of inhaled steroids; Z79.899 Other long term (current) drug therapy
CPT/HCPCS: 76705; 80048; 80076; 81001; 83690; 84702; 84703; 85025; 87507; 96361; 96374; 99284; J2405

== ENCOUNTER → 2024-12-15 | Outpatient (REF) | payer OTHER ==
[~2024-12-15] MED LIST changes: +ONDA-282 PO
== END ==
LOC: M PLALAB 10:15
PROVIDERS: ATTEND Advanced Practice Midwife
DX: Z34.81 Encounter for supervision of other normal pregnancy, first trimester (principal); O99.810 Abnormal glucose complicating pregnancy

== ENCOUNTER → 2024-12-29 | Outpatient (CLI) | payer OTHER ==
[2024-12-29 17:49] LABS: HEMATOCRIT 36.5 % (36.0-47.0); HEMOGLOBIN 12.5 g/dl (12.0-15.5); MEAN CORPUSCULAR HEMOGLOBIN 29.4 pg (27.0-33.0); MEAN CORPUSCULAR HGB CONC 34.2 g/dl (32.0-36.5); MEAN CORPUSCULAR VOLUME 85.9 fl (80.0-96.0); PLATELET COUNT, AUTOMATED 494 10^3/uL (150-450); RED BLOOD COUNT 4.25 10^6/uL (4.00-5.40); WHITE BLOOD COUNT 10.9 10^3/uL (4.0-10.0)
[2024-12-29 18:08] LABS: HEMOGLOBIN A1c 5.1 % (4.0-6.0)
[2024-12-29 18:48] LABS: HIV 1&2 SCREEN NEGATIVE (NEGATIVE)
[2024-12-29 18:56] LABS: HEPATITIS C VIRUS ABY INDEX 0.06 INDEX (<0.8)
[2024-12-29 21:10] LABS: Trichomonas vaginalis (AMP) NOT DETECTED (NEGATIVE)
[2024-12-29 21:34] LABS: GC DNA AMPLIFICATION NEGATIVE (NEGATIVE)
== END ==
LOC: M PLALAB 14:46
PROVIDERS: ATTEND Advanced Practice Midwife
DX: Z34.81 Encounter for supervision of other normal pregnancy, first trimester (principal)

== ENCOUNTER → 2025-01-01 | Outpatient (REF) | payer OTHER ==
[2025-01-01 17:35] LABS: APPEARANCE, URINE HAZY (CLEAR); BACTERIA, URINE AUTO NEGATIVE (NEGATIVE); BILIRUBIN, URINE AUTO NEGATIVE (NEGATIVE); BLOOD, URINE BLOOD NEGATIVE (NEGATIVE); CALCIUM OXALATE CRYSTALS SMALL; COLOR, URINE YELLOW (YELLOW); GLUCOSE, URINE (UA) AUTO NEGATIVE (NEGATIVE); KETONE, URINE AUTO NEGATIVE (NEGATIVE); LEUKOCYTE ESTERASE, URINE AUTO 1+ (NEGATIVE); MUCUS, URINE SMALL (NEGATIVE); NITRITE, URINE AUTO NEGATIVE (NEGATIVE); PROTEIN, URINE AUTO NEGATIVE (NEGATIVE); RBC, URINE AUTO 4 /HPF (0-3); SPECIFIC GRAVITY URINE AUTO 1.028 (1.002-1.035); SQUAMOUS EPITHELIAL CELL UR AU 5 /HPF (0-6); WBC, URINE AUTO 28 /HPF (0-3)
== END ==
LOC: M SFHCWAGY 16:53
PROVIDERS: ATTEND Nurse Practitioner Family
DX: R30.0 Dysuria (principal)

== ENCOUNTER 2025-02-28 12:42 | Emergency (ER) | payer OTHER ==
[~2025-02-28] VITALS: Ht 167.6 cm; Wt 68.5 kg
[2025-02-28] MEDS ORDERED: ASPI81CH49 (12:52)
[2025-02-28 13:31] LABS: KETONE, URINE MANUAL REFLEX NEGATIVE (NEGATIVE); PROTEIN, URINE MANUAL REFLEX 1+ mg/dL (NEGATIVE); SP GRAVITY,URINE MANUAL REFLEX 1.020 (1.002-1.035); UROBILINOGEN, UA MANUAL REFLEX NORMAL (NORMAL)
[2025-02-28 13:32] LABS: NITRITE, URINE MANUAL RFX NEGATIVE (NEGATIVE)
[2025-02-28 13:42] LABS: WBC, URINE MAN RFX 15-20 /hpf (0-3)
[2025-02-28 13:43] LABS: HYALINE CAST, URINE RFX NONE SEEN /lpf (0-1); SQUAMOUS EPITHELIAL URINE RFX SMALL AMOUNT /hpf (SMALL AMT)
[2025-02-28 13:47] LABS: BASO # 0.0 10^3/uL (0.0-0.2); BASO % 0.3 % (0.0-1.0); EOS # 0.1 10^3/uL (0.0-0.5); EOS % 0.8 % (0.0-3.0); LYMPH # 1.9 10^3/uL (1.5-5.0); LYMPH % 15.7 % (24.0-44.0); MONO # 0.5 10^3/uL (0.0-0.8); MONO % 4.4 % (2.0-8.0); NEUTROPHILS # 9.2 10^3/uL (1.5-8.5); NEUTROPHILS % 78.4 % (36.0-66.0); PLATELET COUNT, AUTOMATED 357 10^3/uL (150-450)
[2025-02-28 14:13] LABS: ALT/SGPT < 9 U/L (7.0-40); AST/SGOT 9 U/L (<34); CALCIUM LEVEL 8.8 MG/DL (8.5-10.1); CARBON DIOXIDE LEVEL 20 MMOL/L (20-31); CHLORIDE LEVEL 102 MMOL/L (98-107); CREATININE FOR GFR 0.43 MG/DL (0.55-1.30); GLOMERULAR FILTRATION RATE > 90.0 (>60); POTASSIUM SERUM 3.6 MMOL/L (3.5-5.1); SODIUM LEVEL 136 MMOL/L (136-145)
[2025-02-28] MEDS: ACETAMINOPHEN 650 MG ER TAB PO STA (14:26)
[2025-02-28 14:30] LABS: HCG, SERUM QUANTITATIVE 14158.6 MIU/ML (<4.2)
[2025-02-28 14:40] LABS: MICROSCOPIC EXAM RFX PERFORMED
[2025-02-28] MEDS ORDERED: CEPH250T PO (14:53)
[2025-02-28 14:57] VITALS: BP 118/70; TEMP 97.2; O2SAT 99
[2025-03-02] MEDS ORDERED: NITR100C3 PO (07:32)
== END 2025-02-28 14:59 | disposition home or self-care (01) ==
LOC: M ED 12:42
DX: N10 Acute pyelonephritis (principal); N39.0 Urinary tract infection, site not specified; K90.0 Celiac disease; Z88.0 Allergy status to penicillin; Z88.1 Allergy status to other antibiotic agents; Z88.7 Allergy status to serum and vaccine; Z91.09 Other allergy status, other than to drugs and biological substances; Z91.012 Allergy to eggs; Z79.1 Long term (current) use of non-steroidal anti-inflammatories (NSAID); Z79.2 Long term (current) use of antibiotics; Z79.899 Other long term (current) drug therapy

== ENCOUNTER 2025-03-02 10:12 | Emergency (ER) | payer OTHER ==
[~2025-03-02] VITALS: Ht 167.6 cm; Wt 68.0 kg
[~2025-03-02 10:12] MED LIST changes: +ASPI81CH49; +CEPH250T PO; +NITR100C3 PO
[2025-03-02 10:30] VITALS: TEMP 98.1
[2025-03-02] MEDS: ACETAMINOPHEN 325 MG TAB PO ONE (10:37)
[2025-03-02 10:44] VITALS: BP 121/79; O2SAT 100
[2025-03-02] MEDS ORDERED: NITR100C2 PO (12:06)
== END 2025-03-02 10:49 | disposition admitted as inpatient to this hospital (09) ==
LOC: EDBD 10:12 → EDSEX 10:12 → M ED 10:12
DX: S30.0XXA Contusion of lower back and pelvis, initial encounter (principal); Y92.410 Unspecified street and highway as the place of occurrence of the external cause; Y93.9 Activity, unspecified; Y99.9 Unspecified external cause status; Z3A.20 20 weeks gestation of pregnancy; V01.00XA Pedestrian on foot injured in collision with pedal cycle in nontraffic accident, initial encounter; Z88.0 Allergy status to penicillin; Z88.1 Allergy status to other antibiotic agents; Z88.7 Allergy status to serum and vaccine; Z91.09 Other allergy status, other than to drugs and biological substances; Z79.1 Long term (current) use of non-steroidal anti-inflammatories (NSAID); Z79.899 Other long term (current) drug therapy

== ENCOUNTER 2025-03-02 10:51 | Outpatient (CLI) | payer OTHER ==
[~2025-03-02] VITALS: Ht 167.6 cm; Wt 67.5 kg
[2025-03-02 11:13] VITALS: BP 101/60; O2SAT 100
[2025-03-02] MEDS ORDERED: HOME MED LIST COMPLETE! XX SCH (11:25)
[2025-03-02] MEDS ORDERED: NITR100C2 PO (12:06)
[2025-03-02 12:21] VITALS: BP 105/62; O2SAT 100
[2025-03-02 12:34] LABS: PLATELET COUNT, AUTOMATED 403 10^3/uL (150-450)
== END 2025-03-02 14:00 | disposition home or self-care (01) ==
LOC: M LDO 10:51
PROVIDERS: ATTEND Advanced Practice Midwife
DX: O26.893 Other specified pregnancy related conditions, third trimester (principal); O99.513 Diseases of the respiratory system complicating pregnancy, third trimester; O99.613 Diseases of the digestive system complicating pregnancy, third trimester; O26.613 Liver and biliary tract disorders in pregnancy, third trimester; M25.551 Pain in right hip; R10.31 Right lower quadrant pain; K76.0 Fatty (change of) liver, not elsewhere classified; K90.0 Celiac disease; J45.20 Mild intermittent asthma, uncomplicated; M54.50 Low back pain, unspecified; Z3A.33 33 weeks gestation of pregnancy; V01.9 Pedestrian injured in collision with pedal cycle, unspecified whether traffic or nontraffic accident; Y92.9 Unspecified place or not applicable; Y93.9 Activity, unspecified; Y99.9 Unspecified external cause status; Z86.32 Personal history of gestational diabetes
CPT/HCPCS: 36415; 76816; 85027; 85384; 85460; 86850; 86900; 86901; G0463

== ENCOUNTER → 2025-04-05 | Outpatient (CLI) | payer OTHER ==
[~2025-04-05] MED LIST changes: +NITR100C2 PO
[2025-04-05 13:44] LABS: PLATELET COUNT, AUTOMATED 361 10^3/uL (150-450)
[2025-04-05 14:21] LABS: Trichomonas vaginalis (AMP) NOT DETECTED (NEGATIVE)
[2025-04-05 14:43] LABS: GLUCOSE CHALLENGE TEST 1 HOUR 140 MG/DL (LESS THAN 140)
[2025-04-05 14:44] LABS: GC DNA AMPLIFICATION NEGATIVE (NEGATIVE)
[2025-04-05 15:41] LABS: HEPATITIS C VIRUS ABY INDEX < 0.02 INDEX (<0.8); HIV 1&2 SCREEN NEGATIVE (NEGATIVE)
== END ==
LOC: M PLALAB 09:05
PROVIDERS: ATTEND Nurse Practitioner Family
DX: Z34.82 Encounter for supervision of other normal pregnancy, second trimester (principal)

== ENCOUNTER → 2025-04-11 | Outpatient (CLI) | payer OTHER | LOC: M LAB 06:31 | PROVIDERS: ATTEND Nurse Practitioner Family | DX: R73.02 Impaired glucose tolerance (oral) (principal) ==

== ENCOUNTER → 2025-06-01 | Outpatient (CLI) | payer OTHER | LOC: M WHC 09:59 | PROVIDERS: ATTEND Nurse Practitioner Family | DX: O34.211 Maternal care for low transverse scar from previous cesarean delivery (principal) ==

== ENCOUNTER 2025-06-06 12:28 | Inpatient (IN) | payer OTHER ==
[~2025-06-06] VITALS: Ht 167.6 cm; Wt 82.4 kg
[2025-06-06] VITALS (9 sets, daily range): BP systolic 99–114; BP diastolic 51–67; TEMP 97.7; O2SAT 96–98
[2025-06-06] MEDS ORDERED: OXYTOCIN DRIP 30 UNITS in IV 1 EA IV PRN (13:15)
[2025-06-06] MEDS ORDERED: METHYLERGONOVINE MALEATE 0.2 MG/ML 1 ML VIAL IM PRN (13:15)
[2025-06-06] MEDS ORDERED: TRANEXAMIC ACID INJection 1,000 MG in NS 100 ML IV PRN (13:15)
[2025-06-06] MEDS ORDERED: OXYTOCIN INJ 10UNITS/ML 1ML VIAL IM PRN (13:15)
[2025-06-06] MEDS ORDERED: CARBOPROST TROMETHAMINE 250 MCG/ML AMP IM PRN (13:15)
[2025-06-06 13:45] LABS: PLATELET COUNT, AUTOMATED 335 10^3/uL (150-450)
[2025-06-06] MEDS: BETAMETHASONE SOLUSPAN 6 MG/ML 5 ML VIAL IM ONE (13:53)
[2025-06-06] MEDS: LACTATED RINGER'S 1000 ML IV STA (13:53)
[2025-06-06] MEDS ORDERED: MORPHINE PRES-FREE INJ 10 MG/10 ML VIAL As Ordered ONE (14:21)
[2025-06-06] MEDS ORDERED: ONDANSETRON 4MG 2ML VIAL As Ordered ONE (14:24)
[2025-06-06] MEDS ORDERED: KETOROLAC 30 MG/ML 1 ML VIAL As Ordered ONE (14:24)
[2025-06-06] MEDS ORDERED: dexAMETHasone 4 MG/ML 1 ML VIAL As Ordered ONE (14:24)
[2025-06-06] MEDS ORDERED: ACETAMINOPHEN 1000MG/100ML IV BAG As Ordered ONE (14:33)
[2025-06-06] MEDS ORDERED: OXYTOCIN 30UNITS IN 0.9% NaCl 500ML IV BAG IV ONE (14:33)
[2025-06-06 14:36] LABS: HIV 1&2 SCREEN NEGATIVE (NEGATIVE)
[2025-06-06] MEDS: AZITHROMYCIN INJ 500 MG, VIAL MATE ADAPTER 1 EACH in NS 250 ML IV ONE (14:39)
[2025-06-06] MEDS: BICITRA 30 ML SOLN UDC PO ONE (14:39)
[2025-06-06] MEDS: ceFAZolin SODIUM 2 GM in DEXTROSE 5% (D5W) ADV/MINI-BAG 50 ML IV ONE (14:40)
[2025-06-06 14:44] LABS: HEPATITIS C VIRUS ABY INDEX < 0.02 INDEX (<0.8)
[2025-06-06] MEDS: LR 1,000 ML IV SCH ×3 (14:51→19:30)
[2025-06-06] MEDS ORDERED: DOCUSATE SODIUM 100 MG CAPSULE PO PRN (16:05)
[2025-06-06] MEDS ORDERED: SIMETHICONE 80MG CHEW TAB PO PRN (16:05)
[2025-06-06] MEDS ORDERED: ONDANSETRON 4MG 2ML VIAL IV PRN ×2 (16:05→16:15)
[2025-06-06 16:13] LABS: CORD GAS ABE A -4.2; CORD GAS ABE V -0.8; CORD GAS HCO3 A 21.9 MMOL/L; CORD GAS HCO3 V 24.4 MMOL/L; CORD GAS O2 SAT A 29.1 %; CORD GAS O2 SAT V 40.1 %; CORD GAS PCO2 A 44.0 mmHg; CORD GAS PCO2 V 42.4 mmHg; CORD GAS PH A 7.315 UNITS; CORD GAS PH V 7.378 UNITS; CORD GAS PO2 A 15.7 mmHg; CORD GAS PO2 V 17.5 mmHg; CORD GAS SBC A 19.4 MMOL/L; CORD GAS SBC V 22.4 MMOL/L; CORD GAS TCO2 A 23.3 MMOL/L; CORD GAS TCO2 V 25.7 MMOL/L
[2025-06-06] MEDS ORDERED: diphenhydrAMINE 50 MG/ML VIAL IV PRN (16:15)
[2025-06-06] MEDS ORDERED: **NOTE PATIENT COMMENT** MISC XX SCH (16:15)
[2025-06-06] MEDS: SLF 3 ML SYR IV SCH (16:15)
[2025-06-06] MEDS ORDERED: NALOXONE INJ 0.4 MG/1 ML VIAL IV PRN ×2 (16:15)
[2025-06-06] MEDS: PERCOCET 5MG/325MG TAB PO PRN (19:42)
[2025-06-06] MEDS: KETOROLAC 30 MG/ML 1 ML VIAL IV SCH (21:32)
[2025-06-07 02:00] VITALS: BP 98/55; O2SAT 97
[2025-06-07 05:44] VITALS: BP 98/58; O2SAT 97
[2025-06-07] MEDS: RHOGAM 300MCG (1500IU) INJ IM SCH (07:10)
[2025-06-07 07:45] LABS: PLATELET COUNT, AUTOMATED 372 10^3/uL (150-450)
[2025-06-07] MEDS: PRENATAL VITAMINS CHEWABLE TABLET PO SCH (07:50)
[2025-06-07] MEDS ORDERED: COLA100C5 PO (08:40)
[2025-06-07] MEDS ORDERED: OXYC1TAB23 PO (08:40)
[2025-06-07] MEDS ORDERED: IBUP80TA PO (08:40)
[2025-06-07 10:00] VITALS: BP 120/67; O2SAT 98
[2025-06-07 14:12] VITALS: BP 104/57; O2SAT 96
[2025-06-07] MEDS: IBUPROFEN 800 MG TAB PO SCH (17:48)
[2025-06-07 18:00] VITALS: BP 105/58; O2SAT 98
[2025-06-07 22:00] VITALS: BP 112/60; O2SAT 97
[2025-06-08 02:00] VITALS: BP 106/53; O2SAT 98
[2025-06-08] MEDS: PERCOCET 5MG/325MG TAB PO PRN (02:15)
[2025-06-08] MEDS: MEASLES,MUMPS,RUBELLA VACCINE INJ (MMR-II) SC.IMMUN ONE (09:05)
[2025-06-08 10:00] VITALS: BP 116/71; O2SAT 98
== END 2025-06-08 13:30 | disposition home or self-care (01) | DRG 540 ==
LOC: M LDO 12:28 → M LDI 13:13 → M OBS 17:45
PROVIDERS: ADMIT Advanced Practice Midwife; ATTEND Specialist
PROC: 10D00Z1 Extraction of Products of Conception, Low, Open Approach (ICD-10-PCS; principal; 2025-06-06 15:30)
DX: O42.013 Preterm premature rupture of membranes, onset of labor within 24 hours of rupture, third trimester (principal); Z37.0 Single live birth; O34.211 Maternal care for low transverse scar from previous cesarean delivery; Z3A.33 33 weeks gestation of pregnancy; Z88.0 Allergy status to penicillin; Z88.7 Allergy status to serum and vaccine; Z88.2 Allergy status to sulfonamides; Z88.8 Allergy status to other drugs, medicaments and biological substances; Z91.0120 Allergy to eggs, unspecified; Z91.030 Bee allergy status

== ENCOUNTER 2025-06-14 08:19 | Inpatient (IN) | payer OTHER ==
[~2025-06-14] VITALS: Ht 167.6 cm; Wt 77.5 kg
[~2025-06-14 08:19] MED LIST changes: +COLA100C5 PO; +OXYC1TAB23 PO
[2025-06-14] MEDS ORDERED: ISOVUE-370 76% 100 ML VIAL As Ordered ONE (09:46)
[2025-06-14 09:47] LABS: BASO # 0.1 10^3/uL (0.0-0.2); BASO % 0.4 % (0.0-1.0); EOS # 0.3 10^3/uL (0.0-0.5); EOS % 1.7 % (0.0-3.0); LYMPH # 3.3 10^3/uL (1.5-5.0); LYMPH % 23.0 % (24.0-44.0); MONO # 0.5 10^3/uL (0.0-0.8); MONO % 3.5 % (2.0-8.0); NEUTROPHILS # 10.1 10^3/uL (1.5-8.5); NEUTROPHILS % 70.4 % (36.0-66.0); PLATELET COUNT, AUTOMATED 621 10^3/uL (150-450)
[2025-06-14] MEDS: ONDANSETRON 4MG 2ML VIAL IV ONE (10:06)
[2025-06-14] MEDS: MORPHINE 4 MG/ML 1 ML VIAL IV PRN (10:06)
[2025-06-14] MEDS: NS (Normal Saline) 0.9% 1,000 ML IV ONE (10:07)
[2025-06-14 10:27] LABS: KETONE, URINE AUTO RFX NEGATIVE (NEGATIVE); MUCUS, URINE RFX SMALL (NEGATIVE); NITRITE, URINE AUTO RFX NEGATIVE (NEGATIVE); RBC, URINE AUTO RFX 158 /HPF (0-3); SQUAM EPITHELIAL CELL UR AURFX 8 /HPF (0-6)
[2025-06-14 10:28] LABS: LEUKOCYTE ESTERASE UR AUTO RFX 2+ (NEGATIVE); WBC, URINE AUTO RFX 101 /HPF (0-3)
[2025-06-14 10:34] LABS: ALT/SGPT < 9 U/L (7.0-40); AST/SGOT 11 U/L (<34); CALCIUM LEVEL 10.2 MG/DL (8.5-10.1); CARBON DIOXIDE LEVEL 25 MMOL/L (20-31); CHLORIDE LEVEL 101 MMOL/L (98-107); CREATININE FOR GFR 0.68 MG/DL (0.55-1.30); GLOMERULAR FILTRATION RATE > 90.0 (>60); POTASSIUM SERUM 4.3 MMOL/L (3.5-5.1); SODIUM LEVEL 139 MMOL/L (136-145)
[2025-06-14 12:02] LABS: C REACTIVE PROTEIN QUANTITATIV 1.73 MG/DL (<1.0)
[2025-06-14 12:05] LABS: HEPATITIS B SURFACE ANTIBODY POSITIVE (POSITIVE)
[2025-06-14 12:29] LABS: ERYTHROCYTE SEDIMENTATION RATE 96 mm/hr (0-20)
[2025-06-14] MEDS: cefTRIAXone SOD 1 GM in DEXTROSE 5% (D5W) ADV/MINI-BAG 50 ML IV SCH (13:17)
[2025-06-14] MEDS: LR 1,000 ML IV SCH (13:18)
[2025-06-14] MEDS ORDERED: DOCU100C16 PO (13:52)
[2025-06-14] MEDS ORDERED: IBUP80TA PO (13:52)
[2025-06-14] MEDS ORDERED: OXYC1TAB23 PO (13:52)
[2025-06-14] MEDS ORDERED: HOME MED LIST COMPLETE! XX SCH (13:55)
[2025-06-14 14:32] VITALS: BP 116/72; TEMP 97.4; O2SAT 99
[2025-06-14] MEDS: PERCOCET 5MG/325MG TAB PO PRN (14:58)
[2025-06-14] MEDS: KETOROLAC 30 MG/ML 1 ML VIAL IV PRN (20:09)
[2025-06-14 20:30] VITALS: BP 104/54; TEMP 99; O2SAT 96
[2025-06-15 03:00] VITALS: BP 101/55; TEMP 97.9; O2SAT 97
[2025-06-15 07:27] LABS: PLATELET COUNT, AUTOMATED 434 10^3/uL (150-450)
[2025-06-15 08:02] LABS: ALT/SGPT < 9 U/L (7.0-40); AST/SGOT < 8 U/L (<34); CALCIUM LEVEL 8.6 MG/DL (8.5-10.1); CARBON DIOXIDE LEVEL 24 MMOL/L (20-31); CHLORIDE LEVEL 108 MMOL/L (98-107); CREATININE FOR GFR 0.72 MG/DL (0.55-1.30); GLOMERULAR FILTRATION RATE > 90.0 (>60); POTASSIUM SERUM 4.5 MMOL/L (3.5-5.1); SODIUM LEVEL 143 MMOL/L (136-145)
[2025-06-15 08:05] VITALS: BP 119/71; TEMP 97.7; O2SAT 97
[2025-06-15] MEDS: PHENAZOPYRIDINE 100 MG TAB PO SCH (08:24)
[2025-06-15 16:00] VITALS: BP 117/63; TEMP 98.5; O2SAT 95
[2025-06-15 20:00] VITALS: BP 130/62; TEMP 97.5; O2SAT 96
[2025-06-16 04:30] VITALS: BP 121/74; TEMP 97.4; O2SAT 96
[2025-06-16 08:00] VITALS: BP 132/72; TEMP 97.9; O2SAT 96
[2025-06-16 12:00] VITALS: BP 128/80; TEMP 98.2; O2SAT 97
[2025-06-16] MEDS ORDERED: GABA-1172 PO (12:20)
[2025-06-16] MEDS ORDERED: CYCL5TAB4 PO (12:20)
== END 2025-06-16 13:15 | disposition home or self-care (01) | DRG 561 ==
LOC: M ED 08:19 → M ED INP 12:50 → M PED 14:22
PROVIDERS: ADMIT Specialist; ATTEND Obstetrics & Gynecology
DX: O99.355 Diseases of the nervous system complicating the puerperium (principal); G89.18 Other acute postprocedural pain

== ENCOUNTER → 2025-07-19 | Outpatient (REF) | payer OTHER ==
[~2025-07-19] MED LIST changes: +CYCL5TAB4 PO; +DOCU100C16 PO; +GABA-1172 PO
== END ==
LOC: M LAB REF 17:02
PROVIDERS: ATTEND Physician Assistant
DX: B34.9 Viral infection, unspecified (principal)